=== PATIENT | female | born 1950 | race Caucasian/White ===

== ENCOUNTER 2020-01-07 09:29 | Outpatient (REF) | payer MEDICARE, SELFPAY ==
[2020-01-07 10:08] LABS: MANUAL DIFF FLAG NO
[2020-01-07 10:22] LABS: Basophils Absolute Auto 0.1 X10*3/uL (0.0-0.2); Basophils Percent Auto 0.8 % (0-2); Eosinophils Absolute Auto 0.1 X10*3/uL (0.0-0.4); Eosinophils Percent Auto 2.3 % (0-4); Hematocrit 41.9 % (37-47); Hemoglobin 13.6 g/dl (12.0-16.0); Imm Gran Abs Auto 0.01 X10*3/uL (0.00-0.03); Imm Gran Pct Auto 0.2 % (0.0-0.4); Lymphocytes Percent Auto 32.8 % (20-40); Mean Corpuscular HGB Conc 32.5 g/dl (31.0-35.0); Mean Corpuscular Hemoglobin 30.2 pg (27.0-33.0); Mean Corpuscular Volume 93.1 fL (80-98); Mean Platelet Volume 10.5 fL (9.4-12.3); Monocytes Absolute Auto 0.7 X10*3/uL (0.1-1.2); Monocytes Percent Auto 11.8 % (2-11); Neutrophils Absolute Auto 3.1 X10*3/uL (2.0-8.3); Neutrophils Percent Auto 52.1 % (45-73); Platelet Count 301 X10*3/uL (160-400)
[2020-01-07 10:41] LABS: Alanine Aminotransferase 15 U/L (0-31); Albumin Level 4.5 g/dL (3.5-5.0); Alkaline Phosphatase 91 U/L (39-117); Anion Gap 13 (12-20); Aspartate Amino Transferase 15 U/L (5-31); Bilirubin Total 0.7 mg/dL (0.0-1.0); Blood Urea Nitrogen 15 mg/dL (9-16); Calcium 9.3 mg/dL (8.4-10.2); Carbon Dioxide 27 mmol/L (22-29); Chloride 104 mmol/L (96-108); Cholesterol 204 mg/dL; Estimated Glomerular Filt Rate 57; Glucose Random 92 mg/dL (60-115); Potassium 4.3 mmol/l (3.3-5.1); Sodium 140 mmol/L (135-145); Total Protein 7.2 g/dL (6.5-8.0)
== END 2020-01-07 09:30 | disposition home or self-care (01) ==
LOC: HO.10HDL 09:29
PROVIDERS: Visit Provider Internal Medicine
DX: I12.9 Hypertensive chronic kidney disease with stage 1 through stage 4 chronic kidney disease, or unspecified chronic kidney disease (principal); N18.9 Chronic kidney disease, unspecified; K21.9 Gastro-esophageal reflux disease without esophagitis; E78.00 Pure hypercholesterolemia, unspecified
CPT/HCPCS: 36415; 80053; 82465; 85025

== ENCOUNTER 2020-04-07 09:21 | Outpatient (REF) | payer MEDICARE, SELFPAY ==
--- NOTE | 2020-04-07 | XR_ITS ---
EXAMINATION: XR WRIST, RIGHT CLINICAL INFORMATION: Wrist pain. COMPARISON: None. TECHNIQUE: 4 views of the right wrist. 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 Mild trapezium-scaphoid articulation degenerative changes. Ulnar-negative variance. No fracture or dislocation. No abnormal soft tissue calcification. 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
== END 2020-04-07 09:22 | disposition home or self-care (01) ==
LOC: HO.XRAY 09:21
PROVIDERS: PCP Internal Medicine; Visit Provider Internal Medicine
DX: M25.531 Pain in right wrist (principal); M79.641 Pain in right hand
CPT/HCPCS: 73110

== ENCOUNTER 2020-06-23 08:05 | Outpatient (REF) | payer MEDICARE, SELFPAY ==
--- NOTE | ~2020-06-23 | MM_ITS ---
EXAMINATION: BONE DENSITOMETRY CLINICAL INDICATION: Postmenopausal. COMPARISON: Previous BD dated 04/28/2016 and baseline BD dated 03/28/2010. TECHNIQUE: Using a [employer] DXA System (software version: 13.1) manufactured by [employer], dual-energy x-ray absorptiometry was performed of the lumbar spine and left hip. The images are of good technical quality. Summary results are attached. FINDINGS: AP SPINE L1-L4: Current: BMD 1.053 g/cm2, Z-score -0.1, T-score -1.1, osteopenia, 0.0% change from previous, 1.3% decrease from baseline (<5% change is not significant). Prior: BMD 1.053 g/cm2. Baseline: BMD 1.067 g/cm2. LEFT FEMUR, NECK: Current: BMD 0.716 g/cm2, Z-score -1.1, T-score -2.3, osteopenia. Prior: BMD 0.729 g/cm2. Baseline: BMD 0.827 g/cm2. LEFT FEMUR, TOTAL: Current: BMD 0.861 g/cm2, Z-score -0.2, T-score -1.2, osteopenia, 2.0% decrease from previous, 7.9% decrease from baseline (<5% change is not significant). Prior: BMD 0.879 g/cm2. Baseline: BMD 0.935 g/cm2. IDENTIFIED RISK FACTORS: Menopause, rheumatoid arthritis, alcohol (3 or more units per day). HISTORY OF FRACTURE: None listed. MEDICATIONS: None listed. MM/XR DEXA axial skeleton IMPRESSION: 1. DIAGNOSIS: Osteopenia based on the lowest T-score value of -2.3 in the femoral neck applying World Health Organization criteria. 2. 10-YEAR FRACTURE RISK PREDICTION, FRAX: Major osteoporotic fracture (clinical spine, forearm, hip or shoulder) 20.1%. Hip fracture 6.0%. 3. Treatment Recommendations: NOF guidelines recommend consideration for treatment in postmenopausal women and men age 50 and older presenting with the following: -A hip or vertebral (clinical or morphometric) fracture. -T-score less than or equal to -2.5 at the femoral neck or spine after appropriate evaluation to exclude secondary causes. -Low bone mass at the hip or spine and a 10-year fracture probability by FRAX of greater than or equal to 3% for hip fracture or greater than or equal to 20% for major osteoporotic fracture based on the [place] adapted WHO algorithm. 4. Other Recommendations: All treatment decisions require clinical judgment and consideration of individual patient factors, including patient preferences, comorbidities, previous drug use, risk factors not captured in the FRAX model (e.g. frailty, falls, vitamin D deficiency, increased bone turnover, interval significant decline in bone density) and possible under or overestimation of fracture risk by FRAX. Additional medical evaluation for secondary cause of low bone mineral density may be appropriate. FUTURE SCAN RECOMMENDATION: People with diagnosed cases of osteoporosis or at high risk for fracture should have regular bone mineral density tests. For patients eligible for Medicare, routine testing is allowed once every 2 years. The testing frequency can be increased to one year for patients who have rapidly progressing disease, those who are receiving or discontinuing medical therapy to restore bone mass, or have additional risk factors.
== END 2020-06-23 08:06 | disposition home or self-care (01) ==
LOC: HO.MAMMO 08:05
PROVIDERS: PCP Internal Medicine; Visit Provider Obstetrics & Gynecology
DX: Z13.820 Encounter for screening for osteoporosis (principal); M06.9 Rheumatoid arthritis, unspecified; Z78.0 Asymptomatic menopausal state
CPT/HCPCS: 77080

== ENCOUNTER 2020-07-14 09:43 | Outpatient (REF) | payer MEDICARE, SELFPAY ==
--- NOTE | ~2020-07-14 | XR_ITS ---
EXAMINATION: XR KNEE, LEFT CLINICAL INFORMATION: Left knee pain. COMPARISON: None TECHNIQUE: Four views of the left knee. FINDINGS: There is loss of medial and patellofemoral compartment joint space with moderate periarticular spurring. No visible acute fracture, dislocation or loose body seen. No abnormal joint effusion seen. XR/XR knee LT 4V IMPRESSION: Mild degenerative changes medial and patellofemoral compartment. No visible acute fracture or dislocation seen.
[2020-07-14 10:45] LABS: MANUAL DIFF FLAG NO
[2020-07-14 11:04] LABS: Basophils Absolute Auto 0.1 X10*3/uL (0.0-0.2); Basophils Percent Auto 0.8 % (0-2); Eosinophils Absolute Auto 0.2 X10*3/uL (0.0-0.4); Hematocrit 40.5 % (37-47); Imm Gran Abs Auto 0.01 X10*3/uL (0.00-0.03); Imm Gran Pct Auto 0.2 % (0.0-0.4); Lymphocytes Absolute Auto 1.7 X10*3/uL (1.2-4.9); Mean Corpuscular HGB Conc 32.1 g/dl (31.0-35.0); Mean Corpuscular Hemoglobin 30.4 pg (27.0-33.0); Mean Corpuscular Volume 94.8 fL (80-98); Mean Platelet Volume 10.7 fL (9.4-12.3); Monocytes Absolute Auto 0.7 X10*3/uL (0.1-1.2); Neutrophils Absolute Auto 3.4 X10*3/uL (2.0-8.3); Platelet Count 263 X10*3/uL (160-400); Red Blood Count 4.27 X10*6/uL (4.20-5.50); Red Cell Distribution Width 12.4 % (11.0-16.0)
[2020-07-14 11:25] LABS: Anion Gap 12 (12-20); Blood Urea Nitrogen 18 mg/dL (9-16); Calcium 9.8 mg/dL (8.4-10.2); Carbon Dioxide 27 mmol/L (22-29); Chloride 108 mmol/L (96-108); Estimated Glomerular Filt Rate 53; Glucose Random 104 mg/dL (60-115); Potassium 4.8 mmol/L (3.3-5.1); Sodium 142 mmol/L (135-145)
== END 2020-07-14 09:44 | disposition home or self-care (01) ==
LOC: HO.LAB 09:43
PROVIDERS: PCP Internal Medicine; Visit Provider Internal Medicine
DX: I12.9 Hypertensive chronic kidney disease with stage 1 through stage 4 chronic kidney disease, or unspecified chronic kidney disease (principal); N18.9 Chronic kidney disease, unspecified; K21.9 Gastro-esophageal reflux disease without esophagitis; M25.562 Pain in left knee
CPT/HCPCS: 36415; 73564; 80048; 85025

== ENCOUNTER 2020-12-06 07:35 | Outpatient (REF) | payer MEDICARE, SELFPAY ==
--- NOTE | ~2020-12-06 | MM_ITS ---
EXAMINATION: MM SCREENING DIGITAL BREAST TOMOSYNTHESIS, BILATERAL CLINICAL INFORMATION: Screening. Asymptomatic. The lifetime risk of breast cancer based on the Tyrer-Cuzick Model is 7%. COMPARISON: Mammography: 08/19/2019, 08/16/2018, 07/27/2017 TECHNIQUE: Digital breast tomosynthesis is performed in both the craniocaudal and mediolateral oblique views along with computer-aided detection (CAD). Synthesized 2D images are generated from the tomosynthesis. FINDINGS: There are scattered areas of fibroglandular density (ACR BI-RADS breast composition Category b). There are no significant masses, abnormal calcifications, or other abnormalities. Parenchymal pattern is similar to prior studies. No developing density. No significant changes. MM/MM tomosynthesis screening BI IMPRESSION: No mammographic evidence of malignancy. ASSESSMENT: BI-RADS 1: Negative RECOMMENDATION: Routine annual mammography screening. This patient's information was entered into a reminder system with a target due date for their next mammogram.
== END 2020-12-06 07:36 | disposition home or self-care (01) ==
LOC: HO.MAMMO 07:35
PROVIDERS: Visit Provider Internal Medicine
DX: Z12.31 Encounter for screening mammogram for malignant neoplasm of breast (principal)
CPT/HCPCS: 77063; 77067

== ENCOUNTER 2021-01-19 10:27 | Outpatient (REF) | payer MEDICARE, SELFPAY ==
[2021-01-19 10:45] LABS: MANUAL DIFF FLAG NO
[2021-01-19 11:44] LABS: Basophils Percent Auto 0.5 % (0-2); Eosinophils Absolute Auto 0.2 X10*3/uL (0.0-0.4); Eosinophils Percent Auto 2.6 % (0-4); Hematocrit 41.5 % (37.0-47.0); Hemoglobin 13.6 g/dl (12.0-16.0); Imm Gran Abs Auto 0.04 X10*3/uL (0.00-0.03); Imm Gran Pct Auto 0.5 % (0.0-0.4); Lymphocytes Absolute Auto 2.2 X10*3/uL (1.2-4.9); Lymphocytes Percent Auto 28.6 % (20-40); Mean Corpuscular HGB Conc 32.8 g/dl (31.0-35.0); Mean Corpuscular Hemoglobin 30.2 pg (27.0-33.0); Mean Platelet Volume 10.2 fL (9.4-12.3); Monocytes Absolute Auto 0.7 X10*3/uL (0.1-1.2); Monocytes Percent Auto 8.5 % (2-11); Neutrophils Absolute Auto 4.7 x10*3/uL (2.0-8.3); Neutrophils Percent Auto 59.3 % (45-73); Platelet Count 307 X10*3/uL (160-400); Red Blood Count 4.51 X10*6/uL (4.20-5.50); Red Cell Distribution Width 11.9 % (11.0-16.0); White Blood Count 7.8 X10*3/uL (4.8-10.8)
[2021-01-19 12:15] LABS: Alanine Aminotransferase 18 U/L (0-31); Albumin Level 4.4 g/dL (3.5-5.0); Alkaline Phosphatase 92 U/L (39-117); Anion Gap 11 (12-20); Aspartate Amino Transferase 16 U/L (5-31); Bilirubin Total 0.7 mg/dL (0.0-1.0); Blood Urea Nitrogen 16 mg/dL (9-16); Calcium 9.6 mg/dL (8.4-10.2); Carbon Dioxide 24 mmol/L (22-29); Chloride 108 mmol/L (96-108); Cholesterol 208 mg/dL; Estimated Glomerular Filt Rate 51; Glucose Fasting 117 mg/dL (60-99); HDL Cholesterol 61 mg/dL; LDL Cholesterol Calculated 119 mg/dl; Potassium 4.1 mmol/L (3.3-5.1); Sodium 139 mmol/L (135-145); Triglycerides 144 mg/dL
[2021-01-19 14:46] LABS: Influenza A PCR NEGATIVE (Negative); Influenza B PCR NEGATIVE (Negative); Resp Syncy Virus RNA Qual PCR NEGATIVE (Negative); SARS COV2 PCR INHOUSE NEGATIVE (Negative)
== END 2021-01-19 10:28 | disposition home or self-care (01) ==
LOC: HO.LAB 10:27
PROVIDERS: PCP Internal Medicine; Visit Provider Internal Medicine
DX: I10 Essential (primary) hypertension (principal); E78.00 Pure hypercholesterolemia, unspecified; K21.9 Gastro-esophageal reflux disease without esophagitis; M19.90 Unspecified osteoarthritis, unspecified site; Z20.822 Contact with and (suspected) exposure to COVID-19
CPT/HCPCS: 0241U; 36415; 80053; 80061; 85025

== ENCOUNTER 2021-05-19 10:54 | Outpatient (REF) | payer MEDICARE, SELFPAY ==
--- NOTE | ~2021-05-19 | US_ITS ---
EXAMINATION: US VENOUS ULTRASOUND WITH DOPPLER LOWER EXTREMITY, LEFT CLINICAL INFORMATION: Left leg pain COMPARISON: None TECHNIQUE: Ultrasound of the deep veins is performed from the hip to the calf with compression sonography and color and pulse Doppler assessment. Spectral analysis with color-flow imaging is performed. FINDINGS: There is normal venous compression and respiratory variation and augmented flow. The visualized common femoral vein, superficial femoral vein, profunda femoral vein, popliteal vein, and the trifurcation region shows no evidence of deep venous thrombosis. There is no significant popliteal fossa cyst. If the patient's symptoms persist, followup ultrasound in 5 days 7 days might be of value to exclude proximal propagation from a non-visualized calf vein. US/US venous duplex LE LT IMPRESSION: No DVT demonstrated in the left lower extremity.
--- NOTE | ~2021-05-19 | XR_ITS ---
EXAMINATION: XR KNEE, LEFT CLINICAL INFORMATION: Pain COMPARISON: Previous x-ray March 2016 TECHNIQUE: Four views of the left knee. FINDINGS: Bone alignment is normal. No fracture or dislocation is seen. There is arthritis at the medial femoral tibial and patellofemoral joints with joint space narrowing and osteophyte formation. There is a small joint effusion. XR/XR knee LT 4V IMPRESSION: Arthritis increased from 2017 exam.
== END 2021-05-19 10:55 | disposition home or self-care (01) ==
LOC: HO.US 10:54
PROVIDERS: PCP Internal Medicine; Visit Provider Internal Medicine
DX: M25.562 Pain in left knee (principal); M79.605 Pain in left leg
CPT/HCPCS: 73564; 93971

== ENCOUNTER → 2021-06-24 08:36 | Outpatient (BNVA) | payer MEDICARE, SELFPAY | PROVIDERS: PCP Internal Medicine; Visit Provider Physician Assistant | DX: M17.12 Unilateral primary osteoarthritis, left knee (principal) | CPT/HCPCS: 20610; 99202; J1040 ==

== ENCOUNTER 2021-09-14 11:52 | Outpatient (REF) | payer MEDICARE, SELFPAY ==
[2021-09-14 14:29] LABS: Alanine Aminotransferase 21 U/L (0-31); Albumin Level 4.6 g/dL (3.5-5.0); Alkaline Phosphatase 92 U/L (39-117); Anion Gap 12 (12-20); Aspartate Amino Transferase 21 U/L (5-31); Bilirubin Total 0.5 mg/dL (0.0-1.0); Blood Urea Nitrogen 21 mg/dL (9-16); Calcium 9.7 mg/dL (8.4-10.2); Carbon Dioxide 26 mmol/L (22-29); Chloride 108 mmol/L (96-108); Estimated Glomerular Filt Rate 53; Glucose Random 82 mg/dL (60-115); Potassium 4.3 mmol/L (3.3-5.1); Sodium 142 mmol/L (135-145); Total Protein 7.1 g/dL (6.5-8.0)
== END 2021-09-14 11:53 | disposition home or self-care (01) ==
LOC: HO.10HDL 11:52
PROVIDERS: Visit Provider Internal Medicine
DX: I12.9 Hypertensive chronic kidney disease with stage 1 through stage 4 chronic kidney disease, or unspecified chronic kidney disease (principal); N18.9 Chronic kidney disease, unspecified; K21.9 Gastro-esophageal reflux disease without esophagitis
CPT/HCPCS: 36415; 80053

== ENCOUNTER 2021-12-07 08:37 | Outpatient (REF) | payer MEDICARE, SELFPAY ==
--- NOTE | ~2021-12-07 | MM_ITS ---
EXAMINATION: MM SCREENING DIGITAL BREAST TOMOSYNTHESIS, BILATERAL CLINICAL INFORMATION: Screening. Asymptomatic. The lifetime risk of breast cancer based on the Tyrer-Cuzick Model is 5%. COMPARISON: Mammography: 12/06/2020, 08/19/2019, 08/16/2018 TECHNIQUE: Digital breast tomosynthesis is performed in both the craniocaudal and mediolateral oblique views along with computer-aided detection (CAD). Synthesized 2D images are generated from the tomosynthesis. FINDINGS: There are scattered areas of fibroglandular density (ACR BI-RADS breast composition Category b). Parenchymal pattern is similar to prior exams n developing density or interval significant mass or architectural abnormality. No abnormal calcifications. Scattered minor asymmetries are stable. The axilla are unremarkable. No significant changes. MM/MM tomosynthesis screening BI IMPRESSION: No mammographic evidence of malignancy. ASSESSMENT: BI-RADS 1: Negative RECOMMENDATION: Routine annual mammography screening. This patient's information was entered into a reminder system with a target due date for their next mammogram.
== END 2021-12-07 08:38 | disposition home or self-care (01) ==
LOC: HO.MAMMO 08:37
PROVIDERS: PCP Internal Medicine; Visit Provider Internal Medicine
DX: Z12.31 Encounter for screening mammogram for malignant neoplasm of breast (principal)
CPT/HCPCS: 77063; 77067

== ENCOUNTER 2021-12-28 07:17 | Outpatient (REF) | payer MEDICARE, SELFPAY ==
[2021-12-28 07:28] LABS: MANUAL DIFF FLAG NO
[2021-12-28 07:34] LABS: Basophils Absolute Auto 0.1 X10*3/uL (0.0-0.2); Basophils Percent Auto 1.3 % (0-2); Eosinophils Absolute Auto 0.2 X10*3/uL (0.0-0.4); Eosinophils Percent Auto 3.7 % (0-4); Hematocrit 39.6 % (37.0-47.0); Hemoglobin 13.3 g/dl (12.0-16.0); Imm Gran Abs Auto 0.02 X10*3/uL (0.00-0.03); Imm Gran Pct Auto 0.3 % (0.0-0.4); Lymphocytes Percent Auto 32.1 % (20-40); Mean Corpuscular HGB Conc 33.6 g/dl (31.0-35.0); Mean Corpuscular Hemoglobin 30.7 pg (27.0-33.0); Mean Corpuscular Volume 91.5 fL (80.0-98.0); Mean Platelet Volume 9.7 fL (9.4-12.3); Monocytes Absolute Auto 0.6 X10*3/uL (0.1-1.2); Neutrophils Absolute Auto 3.3 x10*3/uL (2.0-8.3); Neutrophils Percent Auto 52.6 % (45-73); Platelet Count 280 X10*3/uL (160-400); Red Blood Count 4.33 X10*6/uL (4.20-5.50); Red Cell Distribution Width 12.1 % (11.0-16.0); White Blood Count 6.3 X10*3/uL (4.8-10.8)
[2021-12-28 08:26] LABS: Alanine Aminotransferase 13 U/L (0-31); Albumin Level 4.4 g/dL (3.5-5.0); Alkaline Phosphatase 79 U/L (39-117); Anion Gap 13 (12-20); Aspartate Amino Transferase 14 U/L (5-31); Bilirubin Total 0.5 mg/dL (0.0-1.0); Blood Urea Nitrogen 20 mg/dL (9-16); Calcium 9.6 mg/dL (8.4-10.2); Carbon Dioxide 27 mmol/L (22-29); Chloride 108 mmol/L (96-108); Cholesterol 214 mg/dL; Estimated Glomerular Filt Rate 51; Glucose Fasting 96 mg/dL (60-99); HDL Cholesterol 81 mg/dL; LDL Cholesterol Calculated 117 mg/dl; Potassium 4.8 mmol/L (3.3-5.1); Sodium 143 mmol/L (135-145); Total Protein 6.9 g/dL (6.5-8.0); Triglycerides 80 mg/dL
== END 2021-12-28 07:18 | disposition home or self-care (01) ==
LOC: HO.LAB 07:17
PROVIDERS: PCP Internal Medicine; Visit Provider Internal Medicine
DX: K21.9 Gastro-esophageal reflux disease without esophagitis (principal); E78.00 Pure hypercholesterolemia, unspecified; I12.9 Hypertensive chronic kidney disease with stage 1 through stage 4 chronic kidney disease, or unspecified chronic kidney disease; N18.9 Chronic kidney disease, unspecified
CPT/HCPCS: 36415; 80053; 80061; 85025

== ENCOUNTER 2022-04-19 11:24 | Outpatient (REF) | payer MEDICARE, SELFPAY ==
[2022-04-19 13:53] LABS: Anion Gap 14 (12-20); Blood Urea Nitrogen 17 mg/dL (9-16); Calcium 10.2 mg/dL (8.4-10.2); Carbon Dioxide 26 mmol/L (22-29); Chloride 108 mmol/L (96-108); Estimated Glomerular Filt Rate 56; Glucose Random 84 mg/dL (60-115); Potassium 4.5 mmol/L (3.3-5.1); Sodium 143 mmol/L (135-145)
== END 2022-04-19 11:25 | disposition home or self-care (01) ==
LOC: HO.10HDL 11:24
PROVIDERS: Visit Provider Internal Medicine
DX: I12.9 Hypertensive chronic kidney disease with stage 1 through stage 4 chronic kidney disease, or unspecified chronic kidney disease (principal); N18.9 Chronic kidney disease, unspecified
CPT/HCPCS: 36415; 80048

== ENCOUNTER 2022-07-18 10:08 | Outpatient (REF) | payer MEDICARE, SELFPAY ==
[2022-07-18 10:25] LABS: MANUAL DIFF FLAG NO
[2022-07-18 11:29] LABS: Basophils Absolute Auto 0.1 X10*3/uL (0.0-0.2); Basophils Percent Auto 0.8 % (0-2); Eosinophils Absolute Auto 0.2 X10*3/uL (0.0-0.4); Eosinophils Percent Auto 2.4 % (0-4); Hematocrit 37.1 % (37.0-47.0); Hemoglobin 11.7 g/dl (12.0-16.0); Imm Gran Abs Auto 0.03 X10*3/uL (0.00-0.03); Imm Gran Pct Auto 0.4 % (0.0-0.4); Lymphocytes Absolute Auto 1.9 X10*3/uL (1.2-4.9); Lymphocytes Percent Auto 25.2 % (20-40); Mean Corpuscular HGB Conc 31.5 g/dl (31.0-35.0); Mean Corpuscular Hemoglobin 29.6 pg (27.0-33.0); Mean Corpuscular Volume 93.9 fL (80.0-98.0); Mean Platelet Volume 10.8 fL (9.4-12.3); Monocytes Absolute Auto 0.9 X10*3/uL (0.1-1.2); Monocytes Percent Auto 11.9 % (2-11); Neutrophils Absolute Auto 4.4 x10*3/uL (2.0-8.3); Neutrophils Percent Auto 59.3 % (45-73); Platelet Count 332 X10*3/uL (160-400); Red Blood Count 3.95 X10*6/uL (4.20-5.50); Red Cell Distribution Width 12.4 % (11.0-16.0); White Blood Count 7.5 X10*3/uL (4.8-10.8)
[2022-07-18 12:16] LABS: Anion Gap 12 (12-20); Blood Urea Nitrogen 22 mg/dL (9-16); Calcium 9.8 mg/dL (8.4-10.2); Carbon Dioxide 25 mmol/L (22-29); Chloride 109 mmol/L (96-108); Estimated Glomerular Filt Rate 52; Glucose Random 90 mg/dL (60-115); Potassium 4.5 mmol/L (3.3-5.1); Sodium 141 mmol/L (135-145)
== END 2022-07-18 10:09 | disposition home or self-care (01) ==
LOC: HO.LAB 10:08
PROVIDERS: PCP Internal Medicine; Visit Provider Internal Medicine
DX: I10 Essential (primary) hypertension (principal); K21.9 Gastro-esophageal reflux disease without esophagitis; E78.00 Pure hypercholesterolemia, unspecified
CPT/HCPCS: 36415; 80048; 85025

== ENCOUNTER 2022-10-31 09:28 | Outpatient (REF) | payer MEDICARE, SELFPAY ==
[2022-10-31 09:46] LABS: MANUAL DIFF FLAG NO
[2022-10-31 10:16] LABS: Basophils Absolute Auto 0.1 X10*3/uL (0.0-0.2); Basophils Percent Auto 0.7 % (0-2); Eosinophils Absolute Auto 0.2 X10*3/uL (0.0-0.4); Eosinophils Percent Auto 2.8 % (0-4); Hematocrit 41.1 % (37.0-47.0); Hemoglobin 13.3 g/dl (12.0-16.0); Imm Gran Abs Auto 0.03 X10*3/uL (0.00-0.03); Imm Gran Pct Auto 0.4 % (0.0-0.4); Lymphocytes Absolute Auto 1.9 X10*3/uL (1.2-4.9); Lymphocytes Percent Auto 27.1 % (20-40); Mean Corpuscular HGB Conc 32.4 g/dl (31.0-35.0); Mean Corpuscular Volume 92.6 fL (80.0-98.0); Mean Platelet Volume 10.3 fL (9.4-12.3); Monocytes Absolute Auto 0.8 X10*3/uL (0.1-1.2); Monocytes Percent Auto 11.1 % (2-11); Neutrophils Percent Auto 57.9 % (45-73); Platelet Count 293 X10*3/uL (160-400); Red Blood Count 4.44 X10*6/uL (4.20-5.50); Red Cell Distribution Width 12.8 % (11.0-16.0); White Blood Count 6.9 X10*3/uL (4.8-10.8)
[2022-10-31 11:04] LABS: Alanine Aminotransferase 10 U/L (0-31); Albumin Level 4.4 g/dL (3.5-5.0); Alkaline Phosphatase 95 U/L (39-117); Anion Gap 12 (12-20); Aspartate Amino Transferase 15 U/L (5-31); Bilirubin Total 0.5 mg/dL (0.0-1.0); Blood Urea Nitrogen 15 mg/dL (9-16); Carbon Dioxide 26 mmol/L (22-29); Chloride 107 mmol/L (96-108); Estimated Glomerular Filt Rate 48; Glucose Random 100 mg/dL (60-115); Potassium 4.2 mmol/L (3.3-5.1); Sodium 141 mmol/L (135-145); Total Protein 7.4 g/dL (6.5-8.0)
[2022-10-31 11:12] LABS: Thyroid Stimulating Hormone 1.53 uIU/mL (0.32-4.0)
[2022-10-31 11:21] LABS: Vitamin B12 746 pg/mL (200-900)
== END 2022-10-31 09:29 | disposition home or self-care (01) ==
LOC: HO.LAB 09:28
PROVIDERS: PCP Internal Medicine; Visit Provider Internal Medicine
DX: I10 Essential (primary) hypertension (principal); R53.83 Other fatigue; D64.9 Anemia, unspecified
CPT/HCPCS: 36415; 80053; 82607; 84443; 85025

== ENCOUNTER → 2022-11-14 08:20 | Outpatient (REF) | payer MEDICARE, SELFPAY ==
--- NOTE | 2022-11-14 08:30 | CA_ITS ---
Acquisition Time: 2022-11-14 08:38:32 Total Exercise Time: 00:08:00 Test Indications: TOLLIVER,HTN Medications: Protocol: NII Max HR: 136 BPM 91% of Pred: 148 BPM Max BP: 166/076 mmHG Max Work Load: 7.0 METS pt exercised on std nii protocol for 8 min into stage 2, max hr 125-84%max. treadmill was held at stage 2 due to sob. no cp. brief burst of svt-5beats at 750. 1mm st dep in inf/lat leads. equivocal test due to not reaching 85%. pt will require further eval due to st changes. Referred By: Junior Mcguire Overread By: MARY MCGUIRE MD
== END ==
LOC: HO.CARD 08:20
PROVIDERS: PCP Internal Medicine; Visit Provider Internal Medicine
DX: R06.09 Other forms of dyspnea (principal); R03.0 Elevated blood-pressure reading, without diagnosis of hypertension
CPT/HCPCS: 93017

== ENCOUNTER 2022-12-13 08:33 | Outpatient (REF) | payer MEDICARE, SELFPAY | END 2022-12-13 08:34 | disposition home or self-care (01) | LOC: HO.MAMMO 08:33 | PROVIDERS: PCP Internal Medicine; Visit Provider Internal Medicine | DX: Z12.31 Encounter for screening mammogram for malignant neoplasm of breast (principal) | CPT/HCPCS: 77063; 77067 ==

== ENCOUNTER → 2022-12-13 08:45 | Outpatient (BNV) | payer MEDICARE, SELFPAY | PROVIDERS: PCP Internal Medicine; Visit Provider Radiology Diagnostic Radiology | DX: Z12.31 Encounter for screening mammogram for malignant neoplasm of breast (principal) | CPT/HCPCS: 77063; 77067 ==

== ENCOUNTER 2023-01-18 10:27 | Outpatient (REF) | payer MEDICARE, SELFPAY ==
[2023-01-18 13:28] LABS: MANUAL DIFF FLAG NO
[2023-01-18 13:32] LABS: Basophils Absolute Auto 0.1 X10*3/uL (0.0-0.2); Eosinophils Absolute Auto 0.1 X10*3/uL (0.0-0.4); Eosinophils Percent Auto 1.4 % (0-4); Hemoglobin 13.8 g/dl (12.0-16.0); Imm Gran Abs Auto 0.01 X10*3/uL (0.00-0.03); Imm Gran Pct Auto 0.1 % (0.0-0.4); Lymphocytes Absolute Auto 1.6 X10*3/uL (1.2-4.9); Lymphocytes Percent Auto 23.3 % (20-40); Mean Corpuscular HGB Conc 32.9 g/dl (31.0-35.0); Mean Corpuscular Hemoglobin 30.5 pg (27.0-33.0); Mean Corpuscular Volume 92.7 fL (80.0-98.0); Mean Platelet Volume 10.3 fL (9.4-12.3); Monocytes Absolute Auto 0.7 X10*3/uL (0.1-1.2); Monocytes Percent Auto 9.7 % (2-11); Neutrophils Absolute Auto 4.5 x10*3/uL (2.0-8.3); Neutrophils Percent Auto 64.5 % (45-73); Platelet Count 303 X10*3/uL (160-400); Red Blood Count 4.53 X10*6/uL (4.20-5.50); Red Cell Distribution Width 12.2 % (11.0-16.0); White Blood Count 6.9 X10*3/uL (4.8-10.8)
[2023-01-18 13:45] LABS: Alanine Aminotransferase 15 U/L (0-31); Albumin Level 4.4 g/dL (3.5-5.0); Alkaline Phosphatase 97 U/L (39-117); Anion Gap 11 (12-20); Aspartate Amino Transferase 15 U/L (5-31); Bilirubin Total 0.6 mg/dL (0.0-1.0); Blood Urea Nitrogen 15 mg/dL (9-16); Calcium 9.8 mg/dL (8.4-10.2); Carbon Dioxide 25 mmol/L (22-29); Chloride 108 mmol/L (96-108); Cholesterol 218 mg/dL (<200); Estimated Glomerular Filt Rate 52; Glucose Fasting 101 mg/dL (60-99); HDL Cholesterol 73 mg/dL (>40); LDL Cholesterol Calculated 124 mg/dL (<100); Sodium 140 mmol/L (135-145); Total Protein 7.4 g/dL (6.5-8.0); Triglycerides 108 mg/dL (<150)
== END 2023-01-18 10:28 | disposition home or self-care (01) ==
LOC: HO.10HDL 10:27
PROVIDERS: Visit Provider Internal Medicine
DX: I12.9 Hypertensive chronic kidney disease with stage 1 through stage 4 chronic kidney disease, or unspecified chronic kidney disease (principal); N18.9 Chronic kidney disease, unspecified; E78.00 Pure hypercholesterolemia, unspecified; M19.90 Unspecified osteoarthritis, unspecified site
CPT/HCPCS: 36415; 80053; 80061; 85025

== ENCOUNTER → 2023-02-12 08:16 | Outpatient (BNVA) | payer MEDICARE, SELFPAY | PROVIDERS: PCP Internal Medicine; Visit Provider Internal Medicine | DX: R94.39 Abnormal result of other cardiovascular function study (principal); R06.02 Shortness of breath | CPT/HCPCS: 93005; 99202 ==

== ENCOUNTER 2023-02-12 08:17 | Outpatient (AMB) | payer MEDICARE, SELFPAY ==
[2023-02-12 08:26] VITALS: BP 144/80; PULSE 72; BMI 34.7
--- NOTE | 2023-02-12 08:26 | A.OFFVIS_ITS ---
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 She does not have any cardiac issues including coronary disease or myocardial infarction or cardiomyopathy or in fact any other cardiac concerns. She is on medications for hypertension and dyslipidemia. Somewhat on the overweight side. She states that she has been getting short of breath with activity. She generally notices that with activity. No clear anginal-type chest pains. She underwent a stress test which showed some ST depression. She has been referred here for further evaluation. [facility] Medical History (Updated 02/12/23 @ 08:43 by Stephan Cárdenas MD) Acid reflux High cholesterol High blood pressure Surgical History (Updated 02/12/23 @ 08:30 by Margo Gray) Hx of left knee surgery Family History (Updated 02/12/23 @ 08:30 by Margo Gray) Mother No problems noted. Father No problems noted. 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 Review of Systems Const Denies chills, Denies daytime sleepiness, Denies fatigue, Denies fever(s), Denies frequent falls, Denies night sweats, Denies snoring, Denies weakness, Denies weight gain and Denies weight loss Eyes Denies loss of vision ENT Denies dizziness and Denies hearing loss Card Denies chest pain, Denies chest pain with activity, Denies syncope, Denies rapid heart rate, Denies edema, Denies claudication, Denies leg edema, Denies lightheadedness, Denies palpitations, Denies dyspnea on exertion and Denies orthopnea Resp Denies cough, Denies excessive phlegm production, Denies dyspnea on exertion, Denies snoring and Denies wheezing GI Denies abdominal pain, Denies hematochezia, Denies change in bowel habits, Denies change in stool character, Denies heartburn, Denies nausea and Denies vomiting Denies hematuria, Denies urinary frequency and Denies dysuria Musc Denies arthralgias, Denies muscle weakness, Denies numbness and Denies tingling Skin/Breast Denies nail changes and Denies rash Neuro Denies Abnormal speech present, Denies dizziness, Denies syncope, Denies frequent falls, Denies loss of vision, Denies memory loss, Denies numbness, Denies tingling and Denies weakness Psych Denies depression and Denies memory loss Endo Denies fatigue and Denies palpitations Aller/Immun Denies wheezing Physical Exam Vital Signs: Last Vital Signs Pulse 72 02/12/23 08:26 BP 144/80 H 02/12/23 08:26 BMI result Body Mass Index 34.7 Const General: comfortable and no acute distress Orientation/consciousness: patient oriented x3 HEENT Other: Unremarkable Head: Yes normal to inspection Neck Neck: Yes normal visual inspection Chest Chest palpation & inspection: normal inspection of the chest Resp Auscultation: clear to auscultation bilaterally Cardio Palpation: normal PMI Heart sounds: S1 normal heart sound present, S2 normal heart sound present, no gallops, no murmurs and no rubs GI Palpation (GI): Soft to palpation Back/Spine/Pelvis Other: unremarkable Skin General skin exam: no rashes or lesions noted Neuro General: patient oriented x3 Speech: No Abnormal speech present Extrem General: Yes normal to inspection Psych Mental Status: mental status grossly normal Office Procedures EKG Details: EKG with sinus rhythm at 72/Min; nonspecific ST-T changes; [place] [id number], Complete Assessment & Plan Assessment & Plan (1) SOB (shortness of breath): Code(s): R06.02 - Shortness of breath (2) Abnormal stress test: Code(s): R94.39 - Abnormal result of other cardiovascular function study Plan In stage II of the Mike protocol ETT, there was slight ST depression, but she did not have any chest pains. Considering her age and risk factors, we can do stress test with perfusion imaging. Explained about this and she agrees. We will also get echocardiogram for cardiac function. Blood pressure is somewhat borderline. If it remains this way, may need changes. Follow-up after testing. Orders: Orders CA echo transthoracic complete Today I25.10 - Atherosclerotic heart disease of [place] coronary artery without angina pectoris, R06.02 - Shortness of breath CA stress test Today R06.02 - Shortness of breath, R07.2 - Precordial pain NM cardiolite stress test Today R06.02 - Shortness of breath, R07.2 - Precordial pain Coding Level of Care Code New Pt Level 4 (66396) Diagnoses SOB (shortness of breath) R06.02 Abnormal stress test R94.39 CPT Codes EKG - CPT: [id number], Complete ([id number])
== END 2023-02-12 08:52 | disposition home or self-care (01) ==
PROVIDERS: PCP Internal Medicine; Visit Provider Internal Medicine
DX: R06.02 Shortness of breath (principal); R94.39 Abnormal result of other cardiovascular function study
CPT/HCPCS: 93010; 99204

== ENCOUNTER → 2023-04-05 07:51 | Outpatient (REF) | payer MEDICARE, SELFPAY ==
--- NOTE | ~2023-04-05 | NM_ITS ---
Myocardial perfusion study Indication: Precordial chest pain Technique: The patient was brought in for a Lexiscan perfusion study on 04/05/2023. Patient performed low-level exercise and was injected 0.4 mg of Lexiscan intravenously. Within a minute of injection, 30 mCi of sestamibi was given intravenously. Images were obtained using the SPECT gamma camera interlaced with the gating device. Images were obtained in supine position. Resting perfusion study was performed on 04/06/2023. Patient was administered 30 mCi of sestamibi intravenously at rest. Images were then obtained in supine position. Images obtained with and without CT attenuation. Total DLP 175 mGy-cm. Images were processed with the software and compared side to side in short axis, horizontal long axis and vertical long axis views. Findings: The stress perfusion study showed both attenuated as well as non attenuated images show normal uptake of the LV myocardium. Is suggestion of left ventricle hypertrophy. The gated study shows normal LV systolic function with calculated LVEF of 67%. LV cavity is normal in size. The gated study shows normal systolic wall thickening and contraction of segments. Resting study shows non attenuated images show normal uptake of radiotracer in all segments of LV myocardium. Gating at rest reveals normal systolic wall motion with ejection fraction at 56%. The findings are consistent with normal myocardial perfusion. NM/NM cardiolite stress test Impression: 1. Myocardial perfusion imaging study shows normal myocardial perfusion 2. Gated LVEF is 67% 3. Transient ischemic dilatation not present EKG is nondiagnostic for ischemia
--- NOTE | 2023-04-05 07:54 | CA_ITS ---
Acquisition Time: 2023-04-05 09:14:30 Total Exercise Time: 00:02:00 Test Indications: Shortness of breath Medications: See H Protocol: LEXISCAN Max HR: 116 BPM 78% of Pred: 148 BPM Max BP: 150/106 mmHG Max Work Load: 1.0 METS Pharmaoclogical stress test with Lexiscan injection while sitting, without anginal symptoms, without arrhymias, with normotensive response to injection valeria nondiagnoisitic EKGs. Aminophine 75mg IVP given to reverse Lexiscan. Nuclear images pending. Test reviewed with Dr. Valencia Referred By: Stephan Cárdenas Overread By: Eneida Joseph
--- NOTE | 2023-04-05 07:54 | CA_ITS ---
Transthoracic Echocardiogram Patient (Last, First, Middle): Racheal Cunningham, Gender: Female Date of : 1950 Age: 72 Procedure Date: 04/05/2023 Procedure Type: Transthoracic Echocardiogram Location: OP Height: 162.56 cm Weight: 90.72 kg BSA: 1.96 m2 Heart Rate: bpm BP: 140 / 80 mmHg Steel Sampler: TO Referring MD: Stephan Cárdenas MD Transport Nurse: Ilia Valencia MD Symptoms: I25.10 - Atherosclerotic heart disease of [place] coronary artery without... Study Quality: Fair/contrast ECG Rhythm: Sinus Conclusions: - 1. Normal LV ejection fraction of 60-65% with mild LVH with pseudonormal filling pattern 2. Normal cardiac valvular Doppler 3. Normal RV systolic pressure 4. Upper limits of normal ascending aortic size 5. No gross pericardial effusion Findings Procedure Information Contrast agent, definity, is being given per protocol without apparent complications. Left Ventricle Normal left ventricular size and systolic function. There is mildly increased left ventricular wall thickness. The visually estimated ejection fraction is between 60-65%. Spectral Doppler is indicative of a pseudonormal filling pattern. Right Ventricle Normal right ventricular cavity size and systolic function. Atria The left atrium is likely dilated. Interatrial shunt cannot be excluded. The right atrium was not well visualized. Aortic Valve The aortic valve structure and function is likely normal. There is no aortic valve stenosis. There is no aortic valve regurgitation. Mitral Valve Likely normal mitral valve structure and function. There is no mitral valve regurgitation. There is no mitral valve stenosis. Pulmonic Valve The pulmonic valve was not well visualized. Tricuspid Valve Likely normal tricuspid valve structure and function. There is trace tricuspid valve regurgitation. The right ventricular systolic pressure is normal. The right ventricular systolic pressure is 28 mmHg. Normal right atrial pressure. There is no evidence of pulmonary hypertension. Great Vessels The pulmonary artery was not well visualized. Venous The inferior vena cava is normal in size and collapses greater than 50% with inspiration. Pericardium/Pleural There is no evidence of pericardial effusion. Prior Study Comparison No prior study available for comparison. delay in reporting due to technical issues Measurements 2D Linear Measurements IVSd: 1.24 0.6-0.9/0.6-1.0 cm LVIDd: 3.85 3.9-5.3/4.2-5.9 cm LVIDd Index: 1.96 2.4-3.2/2.2-3.1 cm/m2 LVIDs: 2.80 2.0-3.6 cm LVPWd: 1.22 0.7-1.1 cm LA Diam: 3.60 2.7-3.8/3.0-4.0 cm LAIDs Index: 1.84 1.5-2.3 cm/m2 LV Mass: 201.94 67-162/88-224 g LV Mass Index: 103.03 43-95/49-115 g/m2 LVOT Diam: 2.10 3.0+(-)1.3 cm 2D Systolic Function EF 4C: 61.10 >55% Mitral Valve MV Pk E: 0.92 MV PK A: 0.51 MV Decel Time: 121.00 E/A: 1.80 E'Lateral: 10.70 E'Medial: 10.00 E/E' Med: 9.20 E/E' Lat: 8.60 PHT: 35.00 MVA PHT: 6.29 [place]: 7.62 Aortic Valve AoV Pk Ron: 1.50 AoV Mn Ron: 1.06 AoV VTI: 0.27 AoV Pk Grad: 9.00 Aov Mn Grad: 5.00 DAMON Cont.VTI: 2.45 LVOT LVOT Pk Ron: 1.00 LVOT Mn Ron: 0.69 LVOT VTI: 0.19 LVOT Pk Grad: 4.00 LVOT Mn Grad: 2.00 LVOT Diam: 2.10 LVOT Area: 3.46 Diastolic Function MV Pk E: 0.92 MV Pk A: 0.51 E/A: 1.80 E'Medial: 10.00 E/E' Med: 9.20 E' Laterial: 10.70 E/E' Lat: 8.60 Right Ventricle TAPSE (mm): 22.30 TVS' Ron: 10.20 Tricuspid Valve TR Pk Ron: 2.26 TR Pk Grad: 20.00 RA Press: 8.00 RVSP: 28.00 Great Vessels Aorta Sinus of Valsalva: 3.10 2.0-3.5 cm Ao Asc: 3.60 2.1-3.4 cm Updated in Other Vendor System with Status of Final Ilia Valencia MD electronically signed on 04/06/2023 2:41:34 PM with status of Final
== END ==
LOC: HO.CARD 07:51
PROVIDERS: PCP Internal Medicine; Visit Provider Internal Medicine
DX: R07.2 Precordial pain (principal); I25.10 Atherosclerotic heart disease of native coronary artery without angina pectoris; R06.02 Shortness of breath
CPT/HCPCS: 78452; 93017; 93306; A9500; J0280; J2785; Q9957

== ENCOUNTER → 2023-04-05 07:54 | Outpatient (BNV) | payer MEDICARE, SELFPAY | PROVIDERS: PCP Internal Medicine; Visit Provider Nurse Practitioner | DX: R07.2 Precordial pain (principal); R06.02 Shortness of breath | CPT/HCPCS: 78452; 93016; 93018; 93306 ==

== ENCOUNTER → 2023-04-11 08:17 | Outpatient (REF) | payer MEDICARE, SELFPAY ==
--- NOTE | 2023-04-11 08:22 | HM_ITS ---
Conclusion: 1. Patient was monitored for total period of 3 days and 1 hour 2. Baseline was atrial fibrillation with average heart of 84 beats per minute with adequate rate control 3. No significant pauses noted 4. No patient reported symptoms MTDD
== END ==
LOC: HO.CARD 08:17
PROVIDERS: PCP Internal Medicine; Visit Provider Nurse Practitioner
DX: I48.91 Unspecified atrial fibrillation (principal)
CPT/HCPCS: 93242

== ENCOUNTER → 2023-04-11 08:22 | Outpatient (BNV) | payer MEDICARE, SELFPAY | PROVIDERS: PCP Internal Medicine; Visit Provider Internal Medicine Cardiovascular Disease | DX: I48.91 Unspecified atrial fibrillation (principal) | CPT/HCPCS: 93244 ==

== ENCOUNTER 2023-04-24 12:49 | Outpatient (AMB) | payer MEDICARE, SELFPAY ==
[2023-04-24 12:54] VITALS: BP 120/80; PULSE 86; BMI 34.6
--- NOTE | 2023-04-24 12:54 | MHC.OFFVIS ---
Intake Vital Signs 04/24/23 12:54 Height 5 ft 4 in Weight 201 lb 8.04 oz BMI 34.6 BP 120/80 Blood Pressure Location Lt brachial Position Sitting Pulse 86 Pulse Source Pulse Oximeter Intake Visit Reasons: 2 mth f/up mibi/ echo/ HS Intake Note: pt its here for a 2 mnth f/up for mibi /echo pt states that she is feeling fine. 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 When she arrived for her stress test she was found to be in atrial fibrillaion which was not known prior to the test. Nuclear stress test showed normal myocardial perfusion. Holter showed 100% burden of atrial fibrillation with adequate rate control. Echocardiogram showed EF of 60-65% with mild LVH. She reports she has been doing well, feels no different than any other time. Shortness of breath is about the same it has been. Denies chest pain, bleeding issues, palpitations, edema, or orthopnea. She started eliquis 04/06/23 but did not note that it was twice a day and only took it once a day. [facility] Medical History New onset atrial fibrillation Acid reflux High cholesterol High blood pressure Surgical History Hx of left knee surgery Family History Mother No problems noted. Father No problems noted. 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 Review of Systems Const Denies chills, Denies fatigue, Denies fever(s), Denies frequent falls, Denies weakness, Denies weight gain and Denies weight loss ENT Denies dizziness Card Denies chest pain, Denies leg edema, Denies lightheadedness, Denies palpitations, Denies dyspnea and Denies dyspnea on exertion Resp Denies cough, Denies dyspnea and Denies dyspnea on exertion GI Denies hematochezia Musc Denies abnormal gait, Denies muscle weakness, Denies numbness, Denies radiating pain into limb and Denies tingling Neuro Denies abnormal gait, Denies dizziness, Denies frequent falls, Denies numbness, Denies tingling and Denies weakness Endo Denies fatigue and Denies palpitations Physical Exam Vital Signs: Last Vital Signs Pulse 86 04/24/23 12:54 BP 120/80 04/24/23 12:54 BMI result Body Mass Index 34.6 Const General: healthy appearing and no acute distress Orientation/consciousness: patient oriented x3 HEENT Head: Yes normal to inspection Eyes General: appearance normal, both eyes and all related structures Neck Neck: Yes normal visual inspection Chest Chest palpation & inspection: normal inspection of the chest Resp Effort & Inspection: normal respiratory effort Auscultation: clear to auscultation bilaterally Cardio Jugular venous distension: no JVD Palpation: normal PMI Rate: regular rate Rhythm: abnormal rhythm (atrial fibrillation) Heart sounds: no click, no gallops, no murmurs and no rubs GI Inspection: Yes normal to inspection Palpation (GI): Soft to palpation Skin General skin exam: no rashes or lesions noted Neuro General: patient oriented x3 Extrem General: Yes normal to inspection Psych Appearance: grossly normal Assessment & Plan Assessment & Plan (1) New onset atrial fibrillation: Code(s): I48.91 - Unspecified atrial fibrillation (2) Abnormal stress test: Code(s): R94.39 - Abnormal result of other cardiovascular function study (3) SOB (shortness of breath): Code(s): R06.02 - Shortness of breath Plan New onset atrial fibrillation with controlled rates. Plan for cardioversion. Started eliquis 04/06/23 but only once a day. Educated on the importance for it to be twice a day for full coverage of anticoagulation, reduction of strokes, and for safety for the cardioversion. Signs and symptoms of stroke and bleeding reviewed. Must be on full anticoagulation for 4 full weeks without interruption. Patient agreed to plan and reports understanding. States that she is starting eliquis 5mg twice a day today. Coding Level of Care Code Est Pt Level 3 (51397) Diagnoses New onset atrial fibrillation I48.91 Abnormal stress test R94.39 SOB (shortness of breath) R06.02
== END 2023-04-24 13:36 | disposition home or self-care (01) ==
PROVIDERS: PCP Internal Medicine; Visit Provider Nurse Practitioner
DX: I48.91 Unspecified atrial fibrillation (principal); R94.39 Abnormal result of other cardiovascular function study; R06.02 Shortness of breath
CPT/HCPCS: 99213

== ENCOUNTER → 2023-04-24 12:49 | Outpatient (BNVA) | payer MEDICARE, SELFPAY | PROVIDERS: PCP Internal Medicine; Visit Provider Nurse Practitioner | DX: I48.91 Unspecified atrial fibrillation (principal); R94.39 Abnormal result of other cardiovascular function study; R06.02 Shortness of breath | CPT/HCPCS: 99212 ==

== ENCOUNTER 2023-05-15 11:03 | Outpatient (REF) | payer MEDICARE, SELFPAY ==
[2023-05-15 13:22] LABS: MANUAL DIFF FLAG NO
[2023-05-15 13:28] LABS: Basophils Absolute Auto 0.1 X10*3/uL (0.0-0.2); Basophils Percent Auto 1.1 % (0-2); Eosinophils Absolute Auto 0.2 X10*3/uL (0.0-0.4); Eosinophils Percent Auto 3.1 % (0-4); Hematocrit 40.4 % (37.0-47.0); Hemoglobin 13.2 g/dl (12.0-16.0); Imm Gran Abs Auto 0.02 X10*3/uL (0.00-0.03); Imm Gran Pct Auto 0.3 % (0.0-0.4); Lymphocytes Absolute Auto 1.6 X10*3/uL (1.2-4.9); Lymphocytes Percent Auto 25.2 % (20-40); Mean Corpuscular HGB Conc 32.7 g/dl (31.0-35.0); Mean Corpuscular Hemoglobin 29.7 pg (27.0-33.0); Mean Corpuscular Volume 90.8 fL (80.0-98.0); Mean Platelet Volume 10.4 fL (9.4-12.3); Monocytes Absolute Auto 0.7 X10*3/uL (0.1-1.2); Monocytes Percent Auto 11.4 % (2-11); Neutrophils Absolute Auto 3.8 x10*3/uL (2.0-8.3); Neutrophils Percent Auto 58.9 % (45-73); Platelet Count 265 X10*3/uL (160-400); Red Blood Count 4.45 X10*6/uL (4.20-5.50); Red Cell Distribution Width 12.6 % (11.0-16.0); White Blood Count 6.5 X10*3/uL (4.8-10.8)
[2023-05-15 13:53] LABS: Alanine Aminotransferase 13 U/L (0-31); Albumin Level 4.2 g/dL (3.5-5.0); Alkaline Phosphatase 92 U/L (39-117); Anion Gap 9 (12-20); Aspartate Amino Transferase 13 U/L (5-31); Bilirubin Total 0.8 mg/dL (0.0-1.0); Blood Urea Nitrogen 17 mg/dL (9-16); Calcium 9.5 mg/dL (8.4-10.2); Carbon Dioxide 25 mmol/L (22-29); Chloride 112 mmol/L (96-108); Estimated Glomerular Filt Rate 49; Glucose Random 91 mg/dL (60-115); Magnesium 2.2 mg/dL (1.6-2.6); Potassium 4.3 mmol/L (3.3-5.1); Sodium 142 mmol/L (135-145); Total Protein 6.9 g/dL (6.5-8.0)
[2023-05-15 14:15] LABS: Free T4 (Free Thyroxine) 1.02 ng/dL (0.71-1.85); Thyroid Stimulating Hormone 1.85 uIU/mL (0.32-4.0)
== END 2023-05-15 11:04 | disposition home or self-care (01) ==
LOC: HO.10HDL 11:03
PROVIDERS: Visit Provider Internal Medicine
DX: I48.91 Unspecified atrial fibrillation (principal); I10 Essential (primary) hypertension; E78.00 Pure hypercholesterolemia, unspecified
CPT/HCPCS: 36415; 80053; 83735; 84439; 84443; 85025

== ENCOUNTER 2023-05-24 07:07 | Day surgery (SDC) | payer MEDICARE, SELFPAY ==
[2023-05-22 12:17] VITALS: BMI 34.7
--- NOTE | 2023-05-23 08:23 | HO.ANESPROP2 ---
Documented by User: Hollie Toledo NP 05/23/23 08:25 HPI - Anesthesia Eval Consult details Narrative: 72yo F for Cardioversion Eliquis for afib PMFSH Active Problems Active Problems: All Active Problems (Updated 04/05/23 @ 10:07 by Eneida Jsoeph NP) Abnormal stress test (Acute) SOB (shortness of breath) (Acute) Osteoarthritis of left knee (Acute) New onset atrial fibrillation (Acute) Past Medical History Medical History New onset atrial fibrillation Acid reflux High cholesterol High blood pressure Family History Family History Mother No problems noted. Father No problems noted. 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5 Hgb 13.2 Hct 40.4 Plt Count 265 Sodium 142 Potassium 4.3 Chloride 112 H Carbon Dioxide 25 BUN 17 H Creatinine 1.09 Narrative Narrative: NM cardiolite stress test 04/2023 Impression: 1. Myocardial perfusion imaging study shows normal myocardial perfusion 2. Gated LVEF is 67% 3. Transient ischemic dilatation not present EKG is nondiagnostic for ischemia ECHO 04/2023 Conclusions: - 1. Normal LV ejection fraction of 60-65% with mild LVH with pseudonormal filling pattern 2. Normal cardiac valvular Doppler 3. Normal RV systolic pressure 4. Upper limits of normal ascending aortic size 5. No gross pericardial effusion Assessment and Plan Assessment Anesthesia Assessment: Chart Reviewed Documented by User: Lauryn Strong MD 05/24/23 08:02 PMFSH Past Medical History Medical History New onset atrial fibrillation Acid reflux High cholesterol High blood pressure Family History Family History Mother No problems noted. Father No problems noted. Maternal Aunt Stroke Family history of problems with anesthesia: No Surgical History Surgical History (Updated 05/22/23 @ 12:17 by Maryuri Go RN) History of esophagogastroduodenoscopy (EGD) H/O colonoscopy Hx of left knee surgery History of Problems with Anesthesia: No Social History Social History Alcohol intake: current Alcohol intake frequency: a few times a week Alcohol type: wine Patient Tobacco Use Status: Former Tobacco user Quit Date: years ago Use of substances other than those prescribed or required for medical reasons: No Are you DNR?: No Advance Directives: No Advance Directives Information Provided: Yes Current occupational status: employed 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 Meds Allergies Allergy/AdvReac Type Severity Reaction Status Date / Time No Known Allergies Allergy Unknown Verified 03/21/23 13:45 Home Medications Medication Instructions Recorded Confirmed Last Taken Type amlodipine 5 mg tablet 5 mg PO DAILY 06/24/21 05/22/23 05/24/23 History atorvastatin 20 mg tablet 20 mg PO DAILY 06/24/21 05/22/23 Unknown History omeprazole 20 mg capsule,delayed 20 mg PO DAILY 06/24/21 05/22/23 05/24/23 History release Exam Airway Mallampati Class: II TM Dist: >3cm Neck ROM: Limited Heart: a fib Lungs: cta Assessment and Plan Assessment Anesthesia Assessment: Anesthesia Plan Discussed Final Anesthetic Review Family History of Problems with Anesthesia: No History of Problems with Anesthesia: No NPO: Yes ASA Class: III and Emergency Final Preanesthetic Review: No Changes in Pt Med Stat, Meds/Allgs Chart Reviewed, Consent Obtained/Reviewed and Anes Risks/Benef Reviewed Patient Risk: Intermediate Procedure Risk: Low Anesthetic Plan Anesthetic Plan: MAC: Disposition: Standard PACU
[2023-05-24 08:02] VITALS: BP 139/86; PULSE 87; RESP 18; TEMP 36.4; O2SAT 98; BMI 34.3
[2023-05-24] MEDS: Lactated Ringers 1,000 ML 100 ML IVCONT (08:13)
--- NOTE | 2023-05-24 08:31 | P.CONAN_ITS ---
[facility] Active Problems Active Problems: All Active Problems (Updated 04/05/23 @ 10:07 by Eneida Joseph NP) Abnormal stress test (Acute) SOB (shortness of breath) (Acute) Osteoarthritis of left knee (Acute) New onset atrial fibrillation (Acute) Past Medical History Medical History New onset atrial fibrillation Acid reflux High cholesterol High blood pressure Family History Family History Mother No problems noted. Father No problems noted. Maternal Aunt Stroke Family history of problems with anesthesia: No Surgical History Surgical History (Updated 05/22/23 @ 12:17 by Maryuri Go RN) History of esophagogastroduodenoscopy (EGD) H/O colonoscopy Hx of left knee surgery History of Problems with Anesthesia: No Social History Social History Alcohol intake: current Alcohol intake frequency: a few times a week Alcohol type: wine Patient Tobacco Use Status: Former Tobacco user Quit Date: years ago Use of substances other than those prescribed or required for medical reasons: No Are you DNR?: No Advance Directives: No Advance Directives Information Provided: Yes Current occupational status: employed 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 Meds Allergies Allergy/AdvReac Type Severity Reaction Status Date / Time No Known Allergies Allergy Unknown Verified 03/21/23 13:45 Active Medications: Current Medications Lactated Ringer's (Lr) 1,000 mls @ 100 mls/hr IVCONT .Q10H LILA Last Admin: 05/24/23 08:13 Dose: 100 mls/hr Home Medications Medication Instructions Recorded Confirmed Last Taken Type amlodipine 5 mg tablet 5 mg PO DAILY 06/24/21 05/22/23 05/24/23 History atorvastatin 20 mg tablet 20 mg PO DAILY 06/24/21 05/22/23 Unknown History omeprazole 20 mg capsule,delayed 20 mg PO DAILY 06/24/21 05/22/23 05/24/23 History release Exam Height,Weight and Vital Signs: Height 5 ft 4 in Weight 90.718 kg Last Vital Signs Temp 97.5 F 05/24/23 08:02 Pulse 87 05/24/23 08:02 Resp 18 05/24/23 08:02 BP 139/86 05/24/23 08:02 Pulse Ox 98 05/24/23 08:02 O2 Del Method Room Air 05/24/23 08:02 Assessment and Plan Final Anesthetic Review Family History of Problems with Anesthesia: No History of Problems with Anesthesia: No
--- NOTE | 2023-05-24 09:06 | HO.CARDIVERS ---
Cardioversion Procedure Note Cardioversion Date of Procedure: 05/24/2023 Ordering Provider: Dr. Cárdenas Performing Provider: Dr. Cárdenas Indication for Procedure: Symptomatic atrial fibrillation Pre-Op Diagnosis: Atrial fibrillation Post-Op Diagnosis: Sinus rhythm OBDULIO findings (if OBDULIO Performed): Not performed History: See full office note Consent: Informed consent obtained. Procedure: After informed consent was obtained, patient was taken to the PACU. The patient was then positioned appropriately. The cardioversion pads were placed in anteroposterior position. Once under anesthesia, 150 joules of synchronized shock was administered. The rhythm converted from atrial fibrillation to sinus rhythm. Patient remained in sinus rhythm after the end of procedure. Complications: None. Impression: Successful cardioversion from atrial fibrillation to sinus rhythm. Recommendations: Continue beta-blockers. Add flecainide. Continue anticoagulation. Will arrange follow-up.
--- NOTE | 2023-05-24 09:07 | MHC.SHP ---
Pre-Procedural Eval Section A - 24 Hr Update-Section A only Date of Service: 05/24/23 The patient is an INPATIENT: No Section B - Complete if H&P > 30 days Chief Complaint: Unspecified atrial fibrillation Details of Present Illness: Newly diagnosed atrial fibrillation; short of breath; weakness Relevant Family History (Specify if Yes): No Relevant Social History: None Present Medications: see Short Stay Collaborative assessment Medical History: No relevant PMH History of Previous Operations: No relevant previous surgery Allergies: Allergies Allergy/AdvReac Type Severity Reaction Status Date / Time No Known Allergies Allergy Unknown Verified 03/21/23 13:45 Review of Systems Review of Systems Comment: 10 system review negative Exam Exam Comment: HEENT normal Neck normal Cardiac- normal heart sounds; no murmurs, gallops, rubs Resp- normal GI- normal Neuro- normal Ext- normal Plan I have reviewed the history and physical and performed a pertinent physical examination on my patient. No changes have occurred unless specified. Time Spent With Patient Time: Total time managing care of this patient today ____ minutes.
--- NOTE | 2023-05-24 09:26 | ECG_ITS ---
Test Reason : post cardioversion Blood Pressure : / mmHG Vent. Rate : 080 BPM Atrial Rate : 080 BPM P-R Int : 172 ms QRS Dur : 098 ms QT Int : 386 ms P-R-T Axes : 053 002 053 degrees QTc Int : 445 ms Normal sinus rhythm Nonspecific ST and T wave abnormality Abnormal ECG When compared with ECG of 26-DEC-2018 19:42, No significant change was found Referred By: Sivakumar Alexis Electronically Signed By:SIVAKUMAR ALEXIS
[2023-05-24 09:35] VITALS: BP 120/74; PULSE 78; RESP 15; TEMP 36.2; O2SAT 99
[2023-05-24 09:40] VITALS: BP 120/94; PULSE 72; RESP 15; O2SAT 99
[2023-05-24 09:45] VITALS: BP 132/91; PULSE 78; RESP 16; O2SAT 98
[2023-05-24 09:50] VITALS: BP 127/69; PULSE 74; RESP 16; O2SAT 98
[2023-05-24] MEDS: Flecainide Acetate 50 MG TABLET PO (09:53)
[2023-05-24 10:05] VITALS: BP 157/79; PULSE 75; RESP 16; TEMP 36.2; O2SAT 96
== END 2023-05-24 10:24 | disposition home or self-care (01) ==
PROVIDERS: PCP Internal Medicine; Visit Provider Internal Medicine
PROC: 5A2204Z Restoration of Cardiac Rhythm, Single (ICD-10-PCS; principal; 2023-05-24 09:00)
DX: I48.91 Unspecified atrial fibrillation (principal); I10 Essential (primary) hypertension; E78.00 Pure hypercholesterolemia, unspecified; R06.02 Shortness of breath; K21.9 Gastro-esophageal reflux disease without esophagitis; Z79.01 Long term (current) use of anticoagulants; Z79.899 Other long term (current) drug therapy; R94.39 Abnormal result of other cardiovascular function study
CPT/HCPCS: 92960; 93005; J2704

== ENCOUNTER → 2023-05-24 07:07 | Outpatient (BNV) | payer MEDICARE, SELFPAY | PROVIDERS: PCP Internal Medicine; Visit Provider Internal Medicine | DX: I48.91 Unspecified atrial fibrillation (principal); R94.31 Abnormal electrocardiogram [ECG] [EKG] | CPT/HCPCS: 92960; 93010 ==

== ENCOUNTER → 2023-06-04 08:11 | Outpatient (REF) | payer MEDICARE, SELFPAY ==
--- NOTE | 2023-06-04 08:16 | HM_ITS ---
Conclusion: 1. Patient was monitored for total period of 2 days 2. Baseline was normal sinus rhythm with average heart of 61 beats per minute 3. Frequent sinus bradycardia noted with 43.6% of time heart rate below 60 beats per minute with no significant pauses 4. Rare ectopy noted 5. Patient reported 1 event of irregular heartbeat correlating with sinus bradycardia MTDD
== END ==
LOC: HO.CARD 08:11
PROVIDERS: PCP Internal Medicine; Visit Provider Internal Medicine
DX: I48.91 Unspecified atrial fibrillation (principal)
CPT/HCPCS: 93242

== ENCOUNTER → 2023-06-04 08:16 | Outpatient (BNV) | payer MEDICARE, SELFPAY | PROVIDERS: PCP Internal Medicine; Visit Provider Internal Medicine Cardiovascular Disease | DX: I48.91 Unspecified atrial fibrillation (principal) | CPT/HCPCS: 93244 ==

== ENCOUNTER 2023-07-10 13:45 | Outpatient (AMB) | payer MEDICARE, SELFPAY ==
[2023-07-10 13:52] VITALS: BP 124/62; PULSE 80; BMI 34.4
--- NOTE | 2023-07-10 13:52 | MHC.OFFVIS ---
Vital Signs 07/10/23 13:52 Height 5 ft 4 in Weight 200 lb 2.876 oz BMI 34.4 BP 124/62 Blood Pressure Location Lt brachial Position Sitting Pulse 80 Intake Visit Reasons: follow up Multi Share Program Coordinator Required: No Accompanied by: Self / Same As Patient Allergies No Known Allergies Allergy (Unknown, Verified 03/21/23 13:45) Medication List - Last Reconciled 07/10/23 by Stephan Cárdenas MD amlodipine 5 mg PO DAILY apixaban (Eliquis) 5 mg PO BID atorvastatin 20 mg PO DAILY flecainide 50 mg PO Q12H 90 days metoprolol succinate ER 50 mg PO DAILY omeprazole 20 mg PO DAILY HPI Comments Details: Racheal returns for follow-up. She was initially seen in consultation regarding a question of abnormal stress test that showed ST depression and symptoms of shortness of breath. Then we arranged a a repeat study with nuclear perfusion but when she came in she was in atrial fibrillation. Eventually, she underwent cardioversion after appropriate anticoagulation. Today, she states that she is actually feeling much better. Shortness of breath is improved. Hence not clear if she was just having atrial fibrillation episodes in the past causing shortness of breath or not. Currently, on flecainide and metoprolol. Overall, doing good. [facility] Medical History (Updated 07/10/23 @ 14:11 by Stephan Cárdenas MD) New onset atrial fibrillation Acid reflux High cholesterol High blood pressure Surgical History History of esophagogastroduodenoscopy (EGD) H/O colonoscopy Hx of left knee surgery Family History Mother No problems noted. Father No problems noted. 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 Review of Systems Const All systems reviewed & are unremarkable except as noted in HPI and below Reports as per HPI and Reports no additional complaints Eyes Reports as per HPI and Denies no additional complaints ENT Denies no additional complaints and Reports as per HPI Card Reports as per HPI, Reports no additional complaints, Denies acrocyanosis, Denies chest pain, Denies leg edema, Denies lightheadedness, Denies palpitations and Denies dyspnea Resp Reports as per HPI, Denies no additional complaints and Denies dyspnea GI Reports as per HPI and Denies no additional complaints Reports as per HPI Musc Reports no additional complaints and Reports as per HPI Skin/Breast Reports system reviewed and no additional complaints, except as documented Neuro Reports no additional complaints and Reports as per HPI Psych Reports no additional complaints and Reports as per HPI Endo Reports no additional complaints, Reports as per HPI and Denies palpitations Ronald/Lymph Reports no additional complaints and Reports as per HPI Aller/Immun Reports no additional complaints and Reports as per HPI Physical Exam Vital Signs: Last Vital Signs Pulse 80 07/10/23 13:52 BP 124/62 07/10/23 13:52 BMI result Body Mass Index 34.4 Const General: comfortable and no acute distress Orientation/consciousness: patient oriented x3 HEENT Other: Unremarkable Head: Yes normal to inspection Neck Neck: Yes normal visual inspection Chest Chest palpation & inspection: normal inspection of the chest Resp Auscultation: clear to auscultation bilaterally Cardio Palpation: normal PMI Heart sounds: S1 normal heart sound present, S2 normal heart sound present, no gallops, no murmurs and no rubs GI Palpation (GI): Soft to palpation Back/Spine/Pelvis Other: unremarkable Skin General skin exam: no rashes or lesions noted Neuro General: patient oriented x3 Extrem General: Yes normal to inspection Psych Mental Status: mental status grossly normal Office Procedures EKG Details: EKG with sinus rhythm at 80/Min; nonspecific ST-T changes; [place]. 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 Echocardiogram with LVEF of 60-65%. Moderate diastolic dysfunction and otherwise unremarkable. Myocardial perfusion imaging study was unremarkable. Initial Holter showed atrial fibrillation throughout. Now she is status post cardioversion and the repeat Holter shows sinus rhythm only. She is stable on combination of metoprolol and flecainide and that can be continued. Continue anticoagulation. She does drink wine frequently and discussed about that. Advised to cut back. Discussed about sleep apnea but she would not like to undergo sleep study or use CPAP if necessary. Follow-up in 6 months. Coding Level of Care Code Est Pt Level 4 (38324) Diagnoses Paroxysmal atrial fibrillation I48.0 Encounter for monitoring flecainide therapy Z51.81; Z79.899 CPT Codes EKG - CPT: 46359-[id number], Complete ([id number])
== END 2023-07-10 14:09 | disposition home or self-care (01) ==
PROVIDERS: PCP Internal Medicine; Visit Provider Internal Medicine
DX: I48.0 Paroxysmal atrial fibrillation (principal); Z51.81 Encounter for therapeutic drug level monitoring; Z79.899 Other long term (current) drug therapy
CPT/HCPCS: 93010; 99214

== ENCOUNTER → 2023-07-10 13:45 | Outpatient (BNVA) | payer MEDICARE, SELFPAY | PROVIDERS: PCP Internal Medicine; Visit Provider Internal Medicine | DX: I48.0 Paroxysmal atrial fibrillation (principal); Z79.01 Long term (current) use of anticoagulants; Z79.899 Other long term (current) drug therapy | CPT/HCPCS: 93005; 99212 ==

== ENCOUNTER 2023-10-24 10:56 | Outpatient (REF) | payer MEDICARE, SELFPAY ==
[2023-10-24 13:23] LABS: MANUAL DIFF FLAG NO
[2023-10-24 13:29] LABS: Basophils Absolute Auto 0.1 X10*3/uL (0.0-0.2); Basophils Percent Auto 0.9 % (0-2); Eosinophils Absolute Auto 0.2 X10*3/uL (0.0-0.4); Eosinophils Percent Auto 3.1 % (0-4); Hematocrit 40.2 % (37.0-47.0); Hemoglobin 12.9 g/dl (12.0-16.0); Imm Gran Abs Auto 0.01 X10*3/uL (0.00-0.03); Imm Gran Pct Auto 0.2 % (0.0-0.4); Lymphocytes Absolute Auto 1.8 X10*3/uL (1.2-4.9); Lymphocytes Percent Auto 26.9 % (20-40); Mean Corpuscular HGB Conc 32.1 g/dl (31.0-35.0); Mean Corpuscular Hemoglobin 30.2 pg (27.0-33.0); Mean Corpuscular Volume 94.1 fL (80.0-98.0); Mean Platelet Volume 10.7 fL (9.4-12.3); Monocytes Absolute Auto 0.7 X10*3/uL (0.1-1.2); Monocytes Percent Auto 10.7 % (2-11); Neutrophils Absolute Auto 3.8 x10*3/uL (2.0-8.3); Neutrophils Percent Auto 58.2 % (45-73); Platelet Count 289 X10*3/uL (160-400); Red Blood Count 4.27 X10*6/uL (4.20-5.50); Red Cell Distribution Width 12.4 % (11.0-16.0); White Blood Count 6.5 X10*3/uL (4.8-10.8)
[2023-10-24 13:50] LABS: Anion Gap 11 (12-20); Blood Urea Nitrogen 17 mg/dL (9-16); Calcium 9.8 mg/dL (8.4-10.2); Carbon Dioxide 27 mmol/L (22-29); Chloride 107 mmol/L (96-108); Estimated Glomerular Filt Rate 54; Glucose Random 99 mg/dL (60-115); Potassium 3.8 mmol/L (3.3-5.1); Sodium 141 mmol/L (135-145)
== END 2023-10-24 10:57 | disposition home or self-care (01) ==
LOC: HO.10HDL 10:56
PROVIDERS: Visit Provider Internal Medicine
DX: I12.9 Hypertensive chronic kidney disease with stage 1 through stage 4 chronic kidney disease, or unspecified chronic kidney disease (principal); N18.9 Chronic kidney disease, unspecified; I48.0 Paroxysmal atrial fibrillation
CPT/HCPCS: 36415; 80048; 85025

== ENCOUNTER 2023-12-20 08:19 | Outpatient (REF) | payer MEDICARE, SELFPAY ==
--- NOTE | ~2023-12-20 | MM_ITS ---
EXAMINATION: MM SCREENING DIGITAL BREAST TOMOSYNTHESIS, BILATERAL CLINICAL INFORMATION: Screening. Asymptomatic. COMPARISON: Mammography: Comparison is made with available priors TECHNIQUE: Digital breast mammography with tomosynthesis is performed in both the craniocaudal and mediolateral oblique views along with computer-aided detection (CAD). FINDINGS: There are scattered areas of fibroglandular density (ACR BI-RADS breast composition Category b). There are no significant masses, abnormal calcifications, or other abnormalities. MM/MM tomosynthesis screening BI IMPRESSION: No mammographic evidence of malignancy. ASSESSMENT: BI-RADS BI-RADS 1 - Negative RECOMMENDATION: Routine annual mammography screening. 1 year F/U This examination should not preclude the clinical evaluation of a suspicious palpable abnormality. This patient's information was entered into a reminder system with a target due date for their next mammogram. Electronically signed by: Palak Monzon DO 01/01/2024 12:27 PM EDT
== END 2023-12-20 08:20 | disposition home or self-care (01) ==
LOC: HO.MAMMO 08:19
PROVIDERS: PCP Internal Medicine; Visit Provider Internal Medicine
DX: Z12.31 Encounter for screening mammogram for malignant neoplasm of breast (principal)
CPT/HCPCS: 77063; 77067

== ENCOUNTER → 2023-12-20 08:30 | Outpatient (BNV) | payer MEDICARE, SELFPAY | PROVIDERS: PCP Internal Medicine; Visit Provider Internal Medicine | DX: Z12.31 Encounter for screening mammogram for malignant neoplasm of breast (principal) | CPT/HCPCS: 77063; 77067 ==

== ENCOUNTER 2024-01-15 09:58 | Outpatient (AMB) | payer MEDICARE, SELFPAY ==
--- NOTE | 2024-01-15 10:16 | MHC.OFFVIS ---
Vital Signs 01/15/24 10:17 Height 5 ft 4 in Weight 204 lb 2.369 oz BMI 35.0 BP 132/80 Blood Pressure Location Lt brachial Position Sitting Pulse 56 Intake Visit Reasons: 6 mth f/up Critical Care Transport Nurse Required: No Accompanied by: Self / Same As Patient Allergies No Known Allergies Allergy (Unknown, Verified 03/21/23 13:45) Medication List - Last Reconciled 01/15/24 by Stephan Cárdenas MD amlodipine 5 mg PO DAILY apixaban (Eliquis) 5 mg PO BID 90 days atorvastatin 20 mg PO DAILY flecainide 50 mg PO Q12H 90 days metoprolol succinate ER 50 mg PO DAILY omeprazole 20 mg PO DAILY HPI Comments Details: aRcheal returns for follow-up. She was initially seen in consultation regarding a question of abnormal stress test that showed ST depression and symptoms of shortness of breath. Then we arranged a a repeat study with nuclear perfusion but when she came for the test, she was in atrial fibrillation. Then underwent cardioversion in 05/2023, after appropriate anticoagulation. She is maintained on flecainide/metoprolol/Eliquis. Overall, she states that she feels okay but she feels like the medications are slowing her down a lot. No clear-cut cardiac symptoms otherwise. [facility] Medical History (Updated 07/10/23 @ 14:11 by Stephan Cárdenas MD) New onset atrial fibrillation Acid reflux High cholesterol High blood pressure Surgical History History of esophagogastroduodenoscopy (EGD) H/O colonoscopy Hx of left knee surgery Family History Mother No problems noted. Father No problems noted. 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 Review of Systems Const Denies chills, Denies fatigue, Denies fever(s), Denies weight gain and Denies weight loss ENT Denies dizziness Card Denies chest pain, Denies leg edema, Denies lightheadedness, Denies palpitations, Denies dyspnea on exertion, Denies orthopnea and Denies other Resp Denies cough and Denies dyspnea on exertion GI Denies hematochezia and Denies change in stool character Musc Denies abnormal gait, Denies muscle weakness, Denies numbness, Denies radiating pain into limb and Denies tingling Neuro Denies abnormal gait, Denies dizziness, Denies numbness and Denies tingling Endo Denies fatigue and Denies palpitations Physical Exam Vital Signs: Last Vital Signs Pulse 56 01/15/24 10:17 BP 132/80 01/15/24 10:17 BMI result Body Mass Index 35.0 Const General: comfortable and no acute distress Orientation/consciousness: patient oriented x3 HEENT Other: Unremarkable Head: Yes normal to inspection Neck Neck: Yes normal visual inspection Chest Chest palpation & inspection: normal inspection of the chest Resp Auscultation: clear to auscultation bilaterally Cardio Palpation: normal PMI Heart sounds: S1 normal heart sound present, S2 normal heart sound present, no gallops, no murmurs and no rubs GI Palpation (GI): Soft to palpation Back/Spine/Pelvis Other: unremarkable Skin General skin exam: no rashes or lesions noted Neuro General: patient oriented x3 Extrem General: Yes normal to inspection Psych Mental Status: mental status grossly normal Office Procedures EKG Details: EKG with sinus bradycardia at 56/Min; no significant ST-T changes; [place] 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 Echocardiogram with LVEF of 60-65%. Moderate diastolic dysfunction and otherwise unremarkable. Myocardial perfusion imaging study was unremarkable. Initial Holter showed atrial fibrillation throughout. Now she is status post cardioversion and the repeat Holter shows sinus rhythm only. She states that the medications slowing her down a lot and she is not able to perform her activities as she would like. She always feels tired and fatigued. Hence we discussed about ablation and she is interested. We will refer her to EP for the same. Post ablation, she will be able to at least stop the flecainide and lower the dose of beta-blockers and hopefully that will make her feel better. Continue anticoagulation without changes. Otherwise, she does drink wine regularly and we advised not taken any excessive. She is not interested in sleep study. We will see her back after EP consultation. Orders: Referrals Cardiac Electrophysiology Referral I48.0 - Paroxysmal atrial fibrillation Coding Level of Care Code Est Pt Level 4 (23248) Diagnoses Paroxysmal atrial fibrillation I48.0 Encounter for monitoring flecainide therapy Z51.81; Z79.899 CPT Codes EKG - CPT: 11474-[id number], Complete ([id number])
[2024-01-15 10:17] VITALS: BP 132/80; PULSE 56; BMI 35.0
== END 2024-01-15 10:51 | disposition home or self-care (01) ==
PROVIDERS: PCP Internal Medicine; Visit Provider Internal Medicine
DX: I48.0 Paroxysmal atrial fibrillation (principal); Z51.81 Encounter for therapeutic drug level monitoring; Z79.899 Other long term (current) drug therapy
CPT/HCPCS: 93010; 99214

== ENCOUNTER → 2024-01-15 09:58 | Outpatient (BNVA) | payer MEDICARE, SELFPAY | PROVIDERS: PCP Internal Medicine; Visit Provider Internal Medicine | DX: I48.0 Paroxysmal atrial fibrillation (principal); Z51.81 Encounter for therapeutic drug level monitoring; Z79.899 Other long term (current) drug therapy | CPT/HCPCS: 93005; 99212 ==

== ENCOUNTER 2024-03-10 08:58 | Outpatient (REF) | payer MEDICARE, SELFPAY ==
[2024-03-10 10:19] LABS: MANUAL DIFF FLAG NO
[2024-03-10 10:28] LABS: Basophils Absolute Auto 0.1 X10*3/uL (0.0-0.2); Basophils Percent Auto 0.9 % (0-2); Eosinophils Absolute Auto 0.2 X10*3/uL (0.0-0.4); Eosinophils Percent Auto 2.9 % (0-4); Hemoglobin 13.5 g/dl (12.0-16.0); Imm Gran Abs Auto 0.02 X10*3/uL (0.00-0.03); Imm Gran Pct Auto 0.3 % (0.0-0.4); Lymphocytes Absolute Auto 2.2 X10*3/uL (1.2-4.9); Lymphocytes Percent Auto 28.2 % (20-40); Mean Corpuscular HGB Conc 32.9 g/dl (31.0-35.0); Mean Corpuscular Hemoglobin 30.5 pg (27.0-33.0); Mean Corpuscular Volume 92.6 fL (80.0-98.0); Mean Platelet Volume 10.7 fL (9.4-12.3); Monocytes Absolute Auto 0.9 X10*3/uL (0.1-1.2); Neutrophils Absolute Auto 4.4 x10*3/uL (2.0-8.3); Neutrophils Percent Auto 55.7 % (45-73); Platelet Count 274 X10*3/uL (160-400); Red Blood Count 4.43 X10*6/uL (4.20-5.50); Red Cell Distribution Width 12.3 % (11.0-16.0); White Blood Count 7.8 X10*3/uL (4.8-10.8)
[2024-03-10 11:35] LABS: Alanine Aminotransferase 15 U/L (0-31); Albumin Level 4.2 g/dL (3.5-5.0); Alkaline Phosphatase 93 U/L (39-117); Anion Gap 9 (12-20); Aspartate Amino Transferase 19 U/L (5-31); Bilirubin Total 0.5 mg/dL (0.0-1.0); Blood Urea Nitrogen 22 mg/dL (9-16); Calcium 9.6 mg/dL (8.4-10.2); Carbon Dioxide 23 mmol/L (22-29); Chloride 112 mmol/L (96-108); Cholesterol 191 mg/dL (<200); Estimated Glomerular Filt Rate 49; Glucose Fasting 97 mg/dL (60-99); HDL Cholesterol 69 mg/dL (>40); LDL Cholesterol Calculated 93 mg/dL (<100); Potassium 4.4 mmol/L (3.3-5.1); Sodium 140 mmol/L (135-145); Total Protein 7.1 g/dL (6.5-8.0); Triglycerides 147 mg/dL (<150)
== END 2024-03-10 08:59 | disposition home or self-care (01) ==
LOC: HO.10HDL 08:58
PROVIDERS: Visit Provider Internal Medicine
DX: E78.00 Pure hypercholesterolemia, unspecified (principal); K21.9 Gastro-esophageal reflux disease without esophagitis; I12.9 Hypertensive chronic kidney disease with stage 1 through stage 4 chronic kidney disease, or unspecified chronic kidney disease; N18.9 Chronic kidney disease, unspecified
CPT/HCPCS: 36415; 80053; 80061; 85025

== ENCOUNTER 2024-07-22 09:10 | Outpatient (AMB) | payer MEDICARE, SELFPAY ==
--- NOTE | 2024-07-22 09:49 | MHC.OFFVIS ---
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 She was initially seen in consultation regarding a question of abnormal stress test that showed ST depression and symptoms of shortness of breath. Then we arranged a a repeat study with nuclear perfusion but when she came for the test, she was in atrial fibrillation. Then underwent cardioversion in 05/2023, after appropriate anticoagulation. She was on flecainide and metoprolol. However, she was having side effects like slowing down and hence saw EP and underwent ablation last month. Overall, she states she is doing fine post ablation. No new cardiac symptoms. [facility] Medical History (Updated 07/10/23 @ 14:11 by Stephan Cárdenas MD) New onset atrial fibrillation Acid reflux High cholesterol High blood pressure Surgical History History of esophagogastroduodenoscopy (EGD) H/O colonoscopy Hx of left knee surgery Family History Mother No problems noted. Father No problems noted. 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 Review of Systems Const Denies chills, Denies fatigue, Denies fever(s), Denies frequent falls, Denies weakness, Denies weight gain and Denies weight loss ENT Denies dizziness Card Denies chest pain, Denies leg edema, Denies lightheadedness, Denies palpitations, Denies dyspnea and Denies dyspnea on exertion Resp Denies cough, Denies dyspnea and Denies dyspnea on exertion GI Denies hematochezia Musc Denies abnormal gait, Denies muscle weakness, Denies numbness, Denies radiating pain into limb and Denies tingling Neuro Denies abnormal gait, Denies dizziness, Denies frequent falls, Denies numbness, Denies tingling and Denies weakness Endo Denies fatigue and Denies palpitations Physical Exam Vital Signs: Last Vital Signs Pulse 54 07/22/24 09:50 BP 130/72 07/22/24 09:50 BMI result Body Mass Index 36.6 Const General: comfortable and no acute distress Orientation/consciousness: patient oriented x3 HEENT Other: Unremarkable Head: Yes normal to inspection Neck Neck: Yes normal visual inspection Chest Chest palpation & inspection: normal inspection of the chest Resp Auscultation: clear to auscultation bilaterally Cardio Palpation: normal PMI Heart sounds: S1 normal heart sound present, S2 normal heart sound present, no gallops, no murmurs and no rubs GI Palpation (GI): Soft to palpation Back/Spine/Pelvis Other: unremarkable Skin General skin exam: no rashes or lesions noted Neuro General: patient oriented x3 Extrem General: Yes normal to inspection Psych Mental Status: mental status grossly normal Office Procedures EKG Details: EKG with sinus bradycardia at 54/Min; no significant ST-T changes and otherwise unremarkable. [place]. 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 Echocardiogram with LVEF of 60-65%. Moderate diastolic dysfunction and otherwise unremarkable. Myocardial perfusion imaging study was unremarkable. She is status post pulmonary vein and posterior left atrial wall isolation from 06/2024. Remains stable. Continue metoprolol. Stop flecainide. Continue Eliquis. Sleep study discussed in the past but not interested. To moderate alcohol intake. Follow up in 6 months with another Holter. Discussion Notes I discussed with the patient the current status of her Atrial Fibrillation post-ablation, highlighting the success of the procedure in preventing further episodes. We reviewed the decision to stop Flecainide, considering the stable post-procedure state. The need for continued monitoring through future appointments and the use of a heart monitor in six months was emphasized. I instructed the patient to reach out with any emerging symptoms or questions in the interim, ensuring a collaborative approach to her ongoing care. Patient was informed and verbally consented to the use of an ambient scribe for clinic note documentation during this visit. Medications: Discontinued flecainide Discontinued Reason: Doctor's Order 50 mg PO Q12H 90 days 180 tabs 3RF Patient Instructions: - Stop taking Flecainide as advised. - Monitor your heart symptoms and alert me if anything changes. - We'll do a heart monitor check in 6 months. - You can call me if you have any questions or feel any new symptoms. - Follow through with your daily activities, but adjust as needed based on your comfort. - Remember, it?s normal to have some limits with activity as you get older. Coding Level of Care Code Est Pt Level 4 (35616) Complex EM visit Add On G2211 Diagnoses Paroxysmal atrial fibrillation I48.0 Encounter for monitoring flecainide therapy Z51.81; Z79.899 CPT Codes EKG - CPT: 65169-[id number], Complete ([id number])
[2024-07-22 09:50] VITALS: BP 130/72; PULSE 54; BMI 36.6
== END 2024-07-22 10:06 | disposition home or self-care (01) ==
LOC: HO.HCS 09:11
PROVIDERS: PCP Internal Medicine; Visit Provider Internal Medicine
DX: I48.0 Paroxysmal atrial fibrillation (principal); Z51.81 Encounter for therapeutic drug level monitoring; Z79.899 Other long term (current) drug therapy
CPT/HCPCS: 93010; 99214; G2211

== ENCOUNTER → 2024-07-22 09:10 | Outpatient (BNVA) | payer MEDICARE, SELFPAY | PROVIDERS: PCP Internal Medicine; Visit Provider Internal Medicine | DX: I48.0 Paroxysmal atrial fibrillation (principal); Z51.81 Encounter for therapeutic drug level monitoring; Z79.899 Other long term (current) drug therapy | CPT/HCPCS: 93005; 99212 ==

== ENCOUNTER 2024-07-31 09:50 | Outpatient (AMB) | payer MEDICARE, SELFPAY ==
--- NOTE | 2024-07-31 09:51 | A.OFFPC_ITS ---
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 Accompanied by: Self / Same As Patient Allergies No Known Allergies Allergy (Unknown, Verified 07/31/24 09:54) Tobacco use date assessed: 07/31/24 Fall risk assessment: No Falls in past year Last assessed Fall Risk: 07/31/24 Dental Screening Dental Screen Date: 07/31/24 Did you have a dental visit in the last 12 months?: Yes Did you have a dental problem in the last 6 months where you did not have access to dental care?: No HPI HPI Comments History of Present Illness Details The patient is a 74 year old female with a past medical history of atrial fibrillation, htn, hld, GERD, CKD, presenting for follow up CV: On eliquis, atorvastatin, metoprolol. Following with cardiology. She underwent cardioversion in 05/2023. Off flecainide. MSK: S/p left knee replacement. Considering right knee replacement-Dr Aragon. Active [facility] History of skin cancer:RADHA. She will call she believes she is overdue mammo 12/20/2023 Colon cancer screening was with [facility]-she will call [facility] CONSTITUTIONAL: Denies weight loss, fever and chills. HEENT: Denies changes in vision and hearing. RESPIRATORY: Denies SOB and cough. CV: Denies palpitations and CP GI: Denies abdominal pain, nausea, vomiting and diarrhea. : Denies dysuria and urinary frequency. MSK: b/l knee pain SKIN: Denies rash and pruritus. NEUROLOGICAL: Denies headache PSYCHIATRIC: Denies recent changes in mood. PHYSICAL EXAM: GENERAL: Alert and oriented x 3. NAD EYES: EOMI. Anicteric. HENT: Moist mucous membranes. No scleral icterus. No cervical lymphadenopathy. LUNGS: Clear to auscultation bilaterally. CARDIOVASCULAR: Regular rate and rhythm. No murmur. No JVD. ABDOMEN: Soft, non-tender +bs EXTREMITIES: No edema. Non-tender. SKIN: No rashes or lesions. Warm. NEUROLOGIC: No focal neurological deficits. CN II-XII grossly intact PSYCHIATRIC: Cooperative. Appropriate mood and affect [facility] Medical History (Updated 07/31/24 @ 11:48 by Shannan Hodges MD) New onset atrial fibrillation Acid reflux High cholesterol High blood pressure Surgical History History of esophagogastroduodenoscopy (EGD) H/O colonoscopy Hx of left knee surgery Family History Mother No problems noted. Father No problems noted. 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 1. Little interest or pleasure in doing things: not at all 2. Feeling down, depressed, or hopeless: not at all 3. Trouble falling or staying asleep, or sleeping too much: not at all 4. Feeling tired or having little energy: not at all 5. Poor appetite or overeating: not at all 6. Feeling bad about yourself - or that you are a failure or have let yourself or your family down: not at all 7. Trouble concentrating on things, such as reading the newspaper or watching television: not at all 8. Moving or speaking so slowly that other people could have noticed. Or the opposite - being so fidgety or restless that you have been moving around a lot more than usual: not at all 9. Thoughts that you would be better off or of hurting yourself in some way: not at all Total score: 0 Depression Screening Interpretation: Negative Depression Screening Done: Yes 90902 - PHQ-9 Billing: Yes Source: Developed by Drs. Luca Jurado, Gracy Shafer, Panfilo Levy and colleagues, with an educational stef from [employer]. Thrive Questionnaire Date Thrive assessed: 07/31/24 I am a: Patient Within the past 12 months, did the food you bought not last and you didn't have the money to get more?: Never true Within the past 12 months, did you worry whether your food would run out before you got money to buy more?: Never true Do you have trouble paying for medicines?: No Do you have trouble getting transportation to medical appointments?: No Do you have trouble paying your heating and electricity bill?: No Do you have trouble taking care of your child, family member or friend?: No Do you have trouble with day-to-day activities such as bathing, preparing meals, shopping, managing finances, etc.?: No Are you currently unemployed and looking for a job?: No Are you interested in more education?: No THRIVE Score: 0 AUDIT C Alcohol Use Questionnaire (AUDIT-C) 1. How often do you have a drink containing alcohol?: Monthly or less 2. How many drinks containing alcohol do you have on a typical day when you are drinking?: 1 or 2 3. How often do you have six or more drinks on one occasion?: Less than monthly Total Score: 2 ELIZABETH-7 AMB Questionnaire ELIZABETH-7 Date ELIZABETH - 7 assessed: 07/31/24 Feeling nervous, anxious, or on edge: 0 = Not at all Not being able to stop or control worryin = Not at all Worrying too much about different things: 0 = Not at all Trouble relaxin = Not at all Being so restless that it is hard to sit still: 0 = Not at all Becoming easily annoyed or irritable: 0 = Not at all Feeling afraid as if something awful might happen: 0 = Not at all Total ELIZABETH-7 score (0-4 normal; 5-9 mild; 10-14 moderate; 15-21 severe): 0 Source: Developed by Drs. Luca Jurado, Gracy Shafer, Panfilo Levy and colleagues, with an educational stef from [employer]. Physical exam (Primary Care) Vital Signs: Last Vital Signs Temp 97.7 F 07/31/24 09:52 Pulse 58 07/31/24 09:52 BP 122/70 07/31/24 09:52 Pulse Ox 98 07/31/24 09:52 Oxygen Delivery Method Room Air 07/31/24 09:52 BMI result Body Mass Index 36.4 Tobacco/Smoking Status: Tobacco use Status Tobacco use date assessed 07/31/24 07/31/24 10:10 Patient Tobacco Use Status Former Tobacco user 07/31/24 09:53 e-Cigarette/Vaping Use Former Use 07/31/24 10:10 PHQ-9: PHQ-9 Score PHQ-9: Total score 0 07/31/24 10:18 Depression Screening Interpretation: Negative Thrive Assessment: Date of Thrive Assessment Date Thrive assessed 07/31/24 07/31/24 10:10 Coding Level of Care Code New Pt Level 4 (07174) Complex EM visit Add On G2211 Diagnoses Primary osteoarthritis of left knee M17.12 Osteoarthritis type: primary Paroxysmal atrial fibrillation I48.0 Leg heaviness R29.898 Additional Codes PHQ-9 - 41145 - PHQ-9 Billing: Yes ([id number]) Assessment & Plan Assessment & Plan (1) Osteoarthritis of left knee: Code(s): M17.12 - Unilateral primary osteoarthritis, left knee Category: Medical Qualifiers: Osteoarthritis type: primary Qualified Code(s): M17.12 - Unilateral primary osteoarthritis, left knee (2) Paroxysmal atrial fibrillation: Code(s): I48.0 - Paroxysmal atrial fibrillation Category: Medical (3) Leg heaviness: Code(s): R29.898 - Other symptoms and signs involving the musculoskeletal system Category: Medical Plan 74 year old female to establish Past medical, surgical social reviewed Mammo ordered Labs ordered HTN well controlled on current medications Afib on AC and rate control Orders: Orders MM screening mammo BI 5 Months Z12.31 - Encounter for screening mammogram for malignant neoplasm of breast Complete Blood Count Auto Diff Today I48.0 - Paroxysmal atrial fibrillation, I48.91 - Unspecified atrial fibrillation, M17.12 - Unilateral primary osteoarthritis, left knee, Z13.0 - Encounter for screening for diseases of the blood and blood-forming organs and certain disorders involving the immune mechanism Comprehensive Met. Panel Today I48.0 - Paroxysmal atrial fibrillation, I48.91 - Unspecified atrial fibrillation, M17.12 - Unilateral primary osteoarthritis, left knee, Z13.0 - Encounter for screening for diseases of the blood and blood- forming organs and certain disorders involving the immune mechanism TSH reflex Free T4 Today I48.0 - Paroxysmal atrial fibrillation, I48.91 - Unspecified atrial fibrillation, M17.12 - Unilateral primary osteoarthritis, left knee, Z13.0 - Encounter for screening for diseases of the blood and blood- forming organs and certain disorders involving the immune mechanism Lyme IgG/IgM w/reflex to WB Today R29.898 - Other symptoms and signs involving the musculoskeletal system Lipid Panel Today I48.0 - Paroxysmal atrial fibrillation, I48.91 - Unspecified atrial fibrillation, M17.12 - Unilateral primary osteoarthritis, left knee, Z13. 0 - Encounter for screening for diseases of the blood and blood-forming organs and certain disorders involving the immune mechanism Medications: New amlodipine 5 mg PO DAILY 90 tabs 3RF Refilled apixaban (Eliquis) 5 mg PO BID 90 days 180 tabs 3RF atorvastatin 20 mg PO DAILY 90 tabs 3RF omeprazole 20 mg PO DAILY 90 caps 3RF
[2024-07-31 09:52] VITALS: BP 122/70; PULSE 58; TEMP 36.5; O2SAT 98; BMI 36.4
== END 2024-07-31 10:50 | disposition home or self-care (01) ==
LOC: HO.HMCHD 09:51
PROVIDERS: PCP Internal Medicine; Visit Provider Internal Medicine
DX: M17.12 Unilateral primary osteoarthritis, left knee (principal); I48.0 Paroxysmal atrial fibrillation; R29.898 Other symptoms and signs involving the musculoskeletal system

== ENCOUNTER → 2024-07-31 09:50 | Outpatient (BNVA) | payer MEDICARE, SELFPAY | PROVIDERS: PCP Internal Medicine; Visit Provider Internal Medicine | DX: I10 Essential (primary) hypertension (principal); I48.0 Paroxysmal atrial fibrillation; E78.5 Hyperlipidemia, unspecified; K21.9 Gastro-esophageal reflux disease without esophagitis; N18.9 Chronic kidney disease, unspecified; M17.12 Unilateral primary osteoarthritis, left knee; R29.898 Other symptoms and signs involving the musculoskeletal system | CPT/HCPCS: 96127; 99202 ==

== ENCOUNTER 2024-11-27 14:39 | Outpatient (AMB) | payer MEDICARE, SELFPAY ==
[2024-11-27 08:35] VITALS: BP 124/72; PULSE 70; TEMP 36.2; O2SAT 97; BMI 35.2
--- NOTE | 2024-11-27 08:35 | MHC.PC.OV ---
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 Required: No Accompanied by: Self / Same As Patient Allergies No Known Allergies Allergy (Unknown, Verified 11/27/24 08:35) Medication List - Last Reconciled 11/27/24 by GARRY Schuler amlodipine 5 mg PO DAILY apixaban (Eliquis) 5 mg PO BID 90 days atorvastatin 20 mg PO DAILY docusate sodium 100 mg PO BID PRN metoprolol succinate ER 50 mg PO DAILY omeprazole 20 mg PO DAILY Tobacco use date assessed: 11/27/24 Fall risk assessment: No Falls in past year Last assessed Fall Risk: 11/27/24 Dental Screening Dental Screen Date: 11/27/24 Did you have a dental visit in the last 12 months?: Yes Did you have a dental problem in the last 6 months where you did not have access to dental care?: No HPI HPI Comments History of Present Illness Details The patient is a 74-year-old female with A fib on Eliquis, HTN, HLD, GERD, CKD and osteoarthritis of bilateral knees presenting to establish care and to follow up of right knee pain following recent surgery. She had a right total knee was performed on the 8th of the month by Dr. Aragon and she reports that recovery has been challenging due to the pain and the effects of the medication. She is currently taking oxycodone 5 mg, which she finds necessary to manage the pain, especially before physical therapy sessions. She had the left knee replaced a few years ago. She has a follow up with Dr. Aragon on 12/27. The patient has a history of atrial fibrillation for which she is on Eliquis. She also has hypertension managed with metoprolol and amlodipine. Her BP today was 124/72. She has hyperlipidemia managed with atorvastatin. She is scheduled for a mammogram on the 12/25 and has a follow-up with her eye clinic manager on January 28. Her physical therapy is conducted at a facility on [facility], and she reports doing well in therapy despite the challenges posed by medication side effects. Patient was informed and verbally consented to the use of an ambient scribe for clinic note documentation during this visit. [facility] Medical History (Updated 11/27/24 @ 18:58 by GARRY Schuler) Acid reflux High blood pressure High cholesterol Hyperlipidemia Hypertension New onset atrial fibrillation Obesity (BMI 30-39.9) Surgical History (Updated 11/27/24 @ 18:55 by GARRY Schuler) H/O colonoscopy (~04/05/18) History of esophagogastroduodenoscopy (EGD) Hx of left knee surgery Status post total right knee replacement Family History Mother No problems noted. Father No problems noted. 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 1. Little interest or pleasure in doing things: not at all 2. Feeling down, depressed, or hopeless: nearly every day 3. Trouble falling or staying asleep, or sleeping too much: nearly every day (trouble sleeping ) 4. Feeling tired or having little energy: nearly every day 5. Poor appetite or overeating: nearly every day (poor appetite) 6. Feeling bad about yourself - or that you are a failure or have let yourself or your family down: not at all 7. Trouble concentrating on things, such as reading the newspaper or watching television: not at all 8. Moving or speaking so slowly that other people could have noticed. Or the opposite - being so fidgety or restless that you have been moving around a lot more than usual: not at all 9. Thoughts that you would be better off or of hurting yourself in some way: not at all Total score: 12 Depression Screening Interpretation: Positive Depression Screening Follow-up: Follow-up Visit Requested Depression Screening Done: Yes Source: Developed by Drs. Luca Jurado, Gracy Shafer, Panfilo Levy and colleagues, with an educational stef from [employer]. Thrive Questionnaire Date Thrive assessed: 11/27/24 I am a: Patient Within the past 12 months, did the food you bought not last and you didn't have the money to get more?: Never true Within the past 12 months, did you worry whether your food would run out before you got money to buy more?: Never true Do you have trouble paying for medicines?: No Do you have trouble getting transportation to medical appointments?: No Do you have trouble paying your heating and electricity bill?: No Do you have trouble taking care of your child, family member or friend?: No Do you have trouble with day-to-day activities such as bathing, preparing meals, shopping, managing finances, etc.?: No Are you currently unemployed and looking for a job?: No Are you interested in more education?: No THRIVE Score: 0 AUDIT C Alcohol Use Questionnaire (AUDIT-C) 1. How often do you have a drink containing alcohol?: Never 3. How often do you have six or more drinks on one occasion?: Never Total Score: 0 ELIZABETH-7 AMB Questionnaire ELIZABETH-7 Date ELIZABETH - 7 assessed: 11/27/24 Feeling nervous, anxious, or on edge: 1 = Several days Not being able to stop or control worryin = Not at all Worrying too much about different things: 0 = Not at all Trouble relaxin = Not at all Being so restless that it is hard to sit still: 0 = Not at all Becoming easily annoyed or irritable: 0 = Not at all Feeling afraid as if something awful might happen: 0 = Not at all Total ELIZABETH-7 score (0-4 normal; 5-9 mild; 10-14 moderate; 15-21 severe): 1 Source: Developed by Drs. Luca Jurado, Panfilo Pimentel and colleagues, with an educational stef from [employer]. Review of Systems Const Details: CONSTITUTIONAL Negative HEAD/NECK Negative EAR/NOSE/MOUTH/THROAT Negative RESPIRATORY Negative CARDIOVASCULAR Denies chest pain or palpitations GASTROINTESTINAL Reports nausea managed with Zofran MUSCULOSKELETAL Reports right knee pain post-surgery NEUROLOGICAL Negative PSYCHIATRIC Negative Physical exam (Primary Care) Vital Signs: Last Vital Signs Temp 97.1 F 11/27/24 08:35 Pulse 70 11/27/24 08:35 BP 124/72 11/27/24 08:35 Pulse Ox 97 11/27/24 08:35 Oxygen Delivery Method Room Air 11/27/24 08:35 BMI result Body Mass Index 35.2 GENERAL Well developed, obese, in no apparent distress HEENT Head-Normocephalic Eyes- PERRLA, EOMI, Conjuctiva clear, lids WNL Ears- Canals clear, TMs WNL Mouth/Throat-No lesions, no erythema, no exudate Neck- Supple, No lymphadenopathy, thyroid WNL RESPIRATORY Normal I:E, Clear to auscultation CARDIOVASCULAR Regular, rate and rhythm, No murmurs or rubs GASTROINTESTINAL Soft, nontender, normal bowel sounds, no masses MUSCULOSKELETAL Back- nontender right knee-decreased ROM, swelling, tender at joint line NEUROLOGICAL Gait slow with walker PSYCHIATRIC Oriented to person, place and time Mood and affect WNL Appearance WNL Speech WNL Thought processes WNL Tobacco/Smoking Status: Tobacco use Status Tobacco use date assessed 11/27/24 11/27/24 08:36 Patient Tobacco Use Status Former Tobacco user 11/27/24 08:36 e-Cigarette/Vaping Use Former Use 11/27/24 08:36 PHQ-9: PHQ-9 Score PHQ-9: Total score 12 11/27/24 15:05 Depression Screening Interpretation: Positive Depression Screening Follow-up: Follow-up Visit Requested Thrive Assessment: Date of Thrive Assessment Date Thrive assessed 11/27/24 11/27/24 08:36 Coding Level of Care Code Established Pt Est Pt Level 4 (46869) Patient Type Established Diagnoses Status post total right knee replacement Z96.651 Primary hypertension I10 Hypertension type: primary hypertension Paroxysmal atrial fibrillation I48.0 Pure hypercholesterolemia E78.00 Hyperlipidemia type: pure hypercholesterolemia Obesity (BMI 30-39.9) E66.9 Time Spent (min) 30 Comment Time spent on chart review, medication reconciliation, H&P, patient education, orders Assessment & Plan Assessment & Plan (1) Status post total right knee replacement: Code(s): Z96.651 - Presence of right artificial knee joint Category: Surgical Plan: The patient is advised to continue with physical therapy to aid recovery and manage pain with oxycodone as needed, particularly before therapy sessions. Follow-up with the surgeon is scheduled for December to assess progress. (2) Hypertension: Comment: BP today was 124/72 Code(s): I10 - Essential (primary) hypertension Category: Medical Qualifiers: Hypertension type: primary hypertension Qualified Code(s): I10 - Essential (primary) hypertension Plan: The patient is to continue current antihypertensive medications, metoprolol and amlodipine, with regular monitoring of blood pressure. Patient to follow up in 2 months or sooner if symptoms persist or worsen. (3) Paroxysmal atrial fibrillation: Code(s): I48.0 - Paroxysmal atrial fibrillation Category: Medical Plan: The patient is to continue taking Eliquis for anticoagulation and has a follow-up appointment with the eye clinic manager in January. (4) Hyperlipidemia: Code(s): E78.5 - Hyperlipidemia, unspecified Category: Medical Qualifiers: Hyperlipidemia type: pure hypercholesterolemia Qualified Code(s): E78.00 - Pure hypercholesterolemia, unspecified Plan: The patient is to continue atorvastatin for lipid management. Patient to follow up in 2 months or sooner if symptoms persist or worsen. (5) Obesity (BMI 30-39.9): Comment: BMI today was 35.2 Code(s): E66.9 - Obesity, unspecified Category: Medical Plan: Discussed the health risks of obesity with the patient. Reviewed benefits of even moderate weight loss with the patient. We discussed the patient adding more fruits and vegetables to their diet. Will monitor weight and follow up in 2 months. Plan During the visit, we discussed the importance of continuing physical therapy for knee recovery and managing pain with oxycodone as needed. We also reviewed the patient's medication regimen for atrial fibrillation, hypertension, and hyperlipidemia, emphasizing adherence to prescribed therapies. Follow-up appointments with the surgeon and eye clinic manager were confirmed to monitor progress and adjust treatment as necessary. Patient Instructions: - Continue physical therapy as scheduled. - Take oxycodone as needed for pain, especially before therapy sessions. - Adhere to prescribed medications for atrial fibrillation, hypertension, and hyperlipidemia. - Attend follow-up appointments with the surgeon in December and eye clinic manager in January.
--- OUTSIDE RECORDS SUMMARY | 2024-11-27 18:59 | XMS_ITS | Patient Health Record ---
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 Operator Name Role Phone Marcos (RETIRED) Junior VINCENT Primary Care Provide r Luca Valdez Unavailable [phone] Reason For Referral No Information Medications Medication SIG (Take, Route, Frequency, Duration) Notes Start Date End Date Status Vitamin B Complex Ac tive Omeprazole 20 MG Orally Act miguel Fish Oil Active Amlodipine & Diet Manage Prod Active Simvastatin Active Immunizations Vaccine Route Administration Date Status Comme nts Influenza Unknown 01/03/2017 Administered Influenza Unknown 12/03/2017 Administered Problems Problem Type SNOMED Code ICD Code Onset Dates Problem Status W/U Status Risk Notes Problem [id number] Gastro-esophagea l reflux disease without esophagitis (K21.9) Active confirmed Problem [id number] Encounter for screening for malignant neoplasm of colon (Z12.11) Active confirmed Plan Of Treatment Future Test Test Name Order Date COLONOSCOPY 02/05/2018 Insurance Providers Payer Name Payer Address Payer Phone Subscriber Number Group Number Insured Name Patient Relationship to Insured Coverage Start Date Coverage End Date MEDICARE OF [place] [address] [place] [address] [id number] BEENA CUNNINGHAM Self - patient is the insured MED[employer] ATT[employer] CLAIMS [address] [place] [address] [id number] WILLI CUNNINGHAMINE Self - patient is the insured Medical (General) History Medical History History ICD Code GERD-EGD as below Colonoscopy and EGD 06-09-2008 -diverticulosis and internal hemoirrhoids, and small HH, respectively--no esophagitis nor Casanova's hyperlipidemia hypertension Denies TX,DM,CVA,Lung disease,renal dise ase Arthritis-Knees
== END 2024-11-27 15:29 | disposition home or self-care (01) ==
LOC: HO.HMCHD 14:39
PROVIDERS: PCP Internal Medicine; Visit Provider Physician Assistant Medical
DX: I10 Essential (primary) hypertension (principal); I48.0 Paroxysmal atrial fibrillation; E66.9 Obesity, unspecified; Z68.35 Body mass index [BMI] 35.0-35.9, adult; Z96.651 Presence of right artificial knee joint; E78.00 Pure hypercholesterolemia, unspecified

== ENCOUNTER → 2024-11-27 14:39 | Outpatient (BNVA) | payer MEDICARE, SELFPAY | PROVIDERS: PCP Internal Medicine; Visit Provider Physician Assistant Medical | DX: I12.9 Hypertensive chronic kidney disease with stage 1 through stage 4 chronic kidney disease, or unspecified chronic kidney disease (principal); N18.9 Chronic kidney disease, unspecified; I48.0 Paroxysmal atrial fibrillation; E78.00 Pure hypercholesterolemia, unspecified; E66.9 Obesity, unspecified; Z68.35 Body mass index [BMI] 35.0-35.9, adult; Z79.01 Long term (current) use of anticoagulants; Z79.891 Long term (current) use of opiate analgesic; Z79.899 Other long term (current) drug therapy; Z96.651 Presence of right artificial knee joint; Z13.31 Encounter for screening for depression; Z13.39 Encounter for screening examination for other mental health and behavioral disorders | CPT/HCPCS: 96127; 99212 ==

== ENCOUNTER 2024-12-11 10:22 | Outpatient (REF) | payer MEDICARE, SELFPAY ==
--- NOTE | ~2024-12-11 | XR_ITS ---
EXAMINATION: XR ABDOMEN COMPLETE CLINICAL INDICATION: R10.9 - Unspecified abdominal pain COMPARISON: None available. TECHNIQUE: PA view of the chest, and upright and supine views of the abdomen. FINDINGS: The cardiac, hilar, and mediastinal contours are normal. The lungs are clear bilaterally. There is no free air subjacent to the diaphragms. Bowel gas pattern is normal/nonspecific. There is no focally dilated loop, or differential air-fluid level on the upright radiograph. There is a suggestion of small bowel wall thickening on this supine radiograph within the central and left paracentral abdomen. Findings could represent enteritis. There is no organomegaly or large abdominal mass. There is no abnormal soft tissue calcification identified. There is no suspicious bone lesion. There are spinal degenerative changes. XR/XR acute abdomen series IMPRESSION: 1. There is no bowel obstruction or free intraperitoneal air. 2. There is a suggestion of wall thickening of small bowel in the central and left paracentral abdomen. Findings could represent enteritis. CT examination with contrast would be more definitive. 3. The lungs are clear. Electronically signed by: Cesar Joseph MD 12/11/2024 11:40 AM EDT
[2024-12-11 12:06] LABS: Hematocrit 37.0 % (37.0-47.0); Hemoglobin 11.6 g/dl (12.0-16.0); Mean Corpuscular HGB Conc 31.4 g/dl (31.0-35.0); Mean Corpuscular Hemoglobin 28.9 pg (27.0-33.0); Mean Corpuscular Volume 92.3 fL (80.0-98.0); NRBC Abs Auto 0.000 X10*3/uL (0.0-0.012); NRBC Pct Auto 0.0 /100WBC (0.0-0.2); Platelet Count 323 X10*3/uL (160-400); Red Blood Count 4.01 X10*6/uL (4.20-5.50); White Blood Count 7.1 X10*3/uL (4.8-10.8)
== END 2024-12-11 10:23 | disposition home or self-care (01) ==
LOC: HO.XRAY 10:22
PROVIDERS: PCP Physician Assistant Medical; Visit Provider Physician Assistant Medical
DX: R19.5 Other fecal abnormalities (principal); R10.9 Unspecified abdominal pain; R19.7 Diarrhea, unspecified
CPT/HCPCS: 36415; 74022; 85027

== ENCOUNTER 2024-12-11 10:22 | Outpatient (AMB) | payer MEDICARE, SELFPAY ==
[2024-12-11 09:15] VITALS: BP 138/80; PULSE 60; TEMP 36.6; O2SAT 97; BMI 34.0
--- NOTE | 2024-12-11 09:15 | A.OFFPC_ITS ---
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: No Accompanied by: Self / Same As Patient Allergies No Known Allergies Allergy (Unknown, Verified 12/11/24 09:15) Medication List - Last Reconciled 12/15/24 by GARRY Schuler amlodipine 5 mg PO DAILY apixaban (Eliquis) 5 mg PO BID 90 days atorvastatin 20 mg PO DAILY lactulose 20 grams (30 mL) PO BID metoprolol succinate ER 50 mg PO DAILY omeprazole 20 mg PO DAILY Tobacco use date assessed: 12/11/24 Fall risk assessment: No Falls in past year Last assessed Fall Risk: 12/11/24 Dental Screening Dental Screen Date: 12/11/24 Did you have a dental visit in the last 12 months?: Yes Did you have a dental problem in the last 6 months where you did not have access to dental care?: No HPI HPI Comments History of Present Illness Details The patient is a 74-year-old female with A fib on Eliquis, HTN, HLD, GERD, CKD and osteoarthritis of bilateral knees presenting with gastrointestinal symptoms including constipation and diarrhea following cessation of oxycodone. The symptoms began after stopping oxycodone, which was prescribed post-total knee replacement surgery on the 8th of last month. The patient reports a sensation similar to diarrhea, with cramping and dark stools initially, which later changed to a georgi color. The patient experiences fatigue, feeling compelled to push herself to perform daily activities such as cooking. She reports a decreased appetite, forcing herself to eat, and has not felt like herself since the onset of symptoms. The patient has stopped all medications except for those prescribed by her integration assistant, including Eliquis for atrial fibrillation. She denies any history of hemorrhoids and reports self-manipulation to relieve constipation, which resulted in persistent discomfort. The patient reports nausea and has taken anti-nausea medication without relief. Patient was informed and verbally consented to the use of an ambient scribe for clinic note documentation during this visit. [facility] Medical History (Updated 12/11/24 @ 13:24 by GARRY Schuler) Abdominal pain Acid reflux CKD (chronic kidney disease) stage 3, GFR 30-59 ml/min Dark stools Diarrhea High blood pressure High cholesterol Hyperlipidemia Hypertension New onset atrial fibrillation Obesity (BMI 30-39.9) Surgical History H/O colonoscopy (~04/05/18) History of esophagogastroduodenoscopy (EGD) Hx of left knee surgery Status post total right knee replacement Family History Mother No problems noted. Father No problems noted. 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 1. Little interest or pleasure in doing things: not at all 2. Feeling down, depressed, or hopeless: not at all 3. Trouble falling or staying asleep, or sleeping too much: not at all 4. Feeling tired or having little energy: not at all 5. Poor appetite or overeating: not at all 6. Feeling bad about yourself - or that you are a failure or have let yourself or your family down: not at all 7. Trouble concentrating on things, such as reading the newspaper or watching television: not at all 8. Moving or speaking so slowly that other people could have noticed. Or the opposite - being so fidgety or restless that you have been moving around a lot more than usual: not at all 9. Thoughts that you would be better off or of hurting yourself in some way: not at all Total score: 0 Depression Screening Interpretation: Negative Depression Screening Done: Yes Source: Developed by Drs. Luca Jurado, Gracy Shafer, Panfilo Levy and colleagues, with an educational stef from [employer]. Thrive Questionnaire Date Thrive assessed: 12/11/24 I am a: Patient Within the past 12 months, did the food you bought not last and you didn't have the money to get more?: Never true Within the past 12 months, did you worry whether your food would run out before you got money to buy more?: Never true Do you have trouble paying for medicines?: No Do you have trouble getting transportation to medical appointments?: No Do you have trouble paying your heating and electricity bill?: No Do you have trouble taking care of your child, family member or friend?: No Do you have trouble with day-to-day activities such as bathing, preparing meals, shopping, managing finances, etc.?: No Are you currently unemployed and looking for a job?: No Are you interested in more education?: No THRIVE Score: 0 AUDIT C Alcohol Use Questionnaire (AUDIT-C) 1. How often do you have a drink containing alcohol?: Never 3. How often do you have six or more drinks on one occasion?: Never Total Score: 0 ELIZABETH-7 AMB Questionnaire ELIZABETH-7 Date ELIZABETH - 7 assessed: 12/11/24 Feeling nervous, anxious, or on edge: 0 = Not at all Not being able to stop or control worryin = Not at all Worrying too much about different things: 0 = Not at all Trouble relaxin = Not at all Being so restless that it is hard to sit still: 0 = Not at all Becoming easily annoyed or irritable: 0 = Not at all Feeling afraid as if something awful might happen: 0 = Not at all Total ELIZABETH-7 score (0-4 normal; 5-9 mild; 10-14 moderate; 15-21 severe): 0 Source: Developed by Drs. Luca Jurado, Gracy Shafer, Panfilo Levy and colleagues, with an educational stef from [employer]. Review of Systems Const Details: CONSTITUTIONAL No fever 7 lb weight loss Reports fatigue, decreased appetite, nausea. Denies feeling like herself. HEAD/NECK Negative RESPIRATORY Negative CARDIOVASCULAR Negative GASTROINTESTINAL Reports diarrhea, cramping, dark stools initially, now georgi colored. Denies blood or mucus in stool. MUSCULOSKELETAL knee pain NEUROLOGICAL Negative PSYCHIATRIC Negative Physical exam (Primary Care) Vital Signs: Last Vital Signs Temp 97.9 F 12/11/24 09:15 Pulse 60 12/11/24 09:15 BP 138/80 12/11/24 09:15 Pulse Ox 97 12/11/24 09:15 Oxygen Delivery Method Room Air 12/11/24 09:15 BMI result Body Mass Index 34.0 GENERAL Well developed, obese, in no apparent distress HEENT Head-Normocephalic Neck- Supple, No lymphadenopathy, thyroid WNL RESPIRATORY Normal I:E, Clear to auscultation CARDIOVASCULAR Regular, rate and rhythm, No murmurs or rubs GASTROINTESTINAL Soft, nontender, normal bowel sounds, no masses NEUROLOGICAL Gait normal PSYCHIATRIC Oriented to person, place and time Mood and affect WNL Appearance WNL Speech WNL Thought processes WNL Tobacco/Smoking Status: Tobacco use Status Tobacco use date assessed 12/11/24 12/11/24 09:17 Patient Tobacco Use Status Former Tobacco user 12/11/24 09:17 e-Cigarette/Vaping Use Former Use 12/11/24 09:17 PHQ-9: PHQ-9 Score PHQ-9: Total score 0 12/11/24 10:33 Depression Screening Interpretation: Negative Thrive Assessment: Date of Thrive Assessment Date Thrive assessed 12/11/24 12/11/24 09:17 Coding Level of Care Code Established Pt Est Pt Level 3 (46539) Patient Type Established Diagnoses Diarrhea R19.7 Abdominal discomfort R10.9 Time Spent (min) 25 Comment Time spent on H&P, Patient education and orders. Assessment & Plan Assessment & Plan (1) Diarrhea: Code(s): R19.7 - Diarrhea, unspecified Category: Medical Plan: The diarrhea is suspected to be due to overflow from constipation, and the management plan focuses on resolving the constipation. (2) Abdominal discomfort: Code(s): R10.9 - Unspecified abdominal pain Plan: The plan includes performing an abdominal x-ray to assess the amount of stool present and a complete blood count to check for any internal bleeding. The patient is advised to take Metamucil twice daily and increase fluid intake to facilitate bowel movements. If the x-ray indicates significant stool retention, stronger laxatives may be considered. Plan I discussed with the patient that the symptoms are likely due to constipation following the cessation of oxycodone, leading to overflow diarrhea. We plan to perform an abdominal x-ray and blood tests to confirm the diagnosis and rule out other causes. I advised the patient to take Metamucil and increase fluid intake, with the possibility of stronger laxatives if necessary. Follow-up will be arranged based on test results, and the patient will be contacted with the findings. Orders: Orders XR acute abdomen series 12/11/24 R10.9 - Unspecified abdominal pain, R19.7 - Diarrhea, unspecified Complete Blood Count no Diff 12/11/24 R19.5 - Other fecal abnormalities Patient Instructions: - Take Metamucil twice daily, in the morning and at night. - Increase fluid intake to help with bowel movements. - Go to the hospital for an abdominal x-ray and blood work as instructed. - Await a call with test results and further instructions. -Discussed with patient when important to go to the ER
== END 2024-12-11 10:58 | disposition home or self-care (01) ==
LOC: HO.HMCHD 10:23
PROVIDERS: Visit Provider Physician Assistant Medical
DX: R19.7 Diarrhea, unspecified (principal); R10.9 Unspecified abdominal pain

== ENCOUNTER → 2024-12-11 11:08 | Outpatient (BNV) | payer MEDICARE, SELFPAY | PROVIDERS: PCP Physician Assistant Medical; Visit Provider Radiology Diagnostic Radiology | DX: R10.9 Unspecified abdominal pain (principal) | CPT/HCPCS: 74022 ==

== ENCOUNTER 2025-01-28 09:55 | Outpatient (AMB) | payer MEDICARE, SELFPAY ==
[2025-01-28 10:12] VITALS: BP 120/62; PULSE 58; BMI 33.7
--- NOTE | 2025-01-28 10:12 | A.OFFVIS_ITS ---
Vital Signs 01/28/25 10:12 Height 5 ft 4 in Weight 196 lb 3.382 oz BMI 33.7 BP 120/62 Blood Pressure Location Lt brachial Position Sitting Pulse 58 Pulse Source Pulse Oximeter Intake Visit Reasons: 6 mth f/up s/p holter Allergies No Known Allergies Allergy (Unknown, Verified 12/11/24 09:15) Medication List - Last Reconciled 01/28/25 by Stephan Cárdenas MD amlodipine 5 mg PO DAILY apixaban (Eliquis) 5 mg PO BID 90 days atorvastatin 20 mg PO DAILY lactulose 20 grams (30 mL) PO BID metoprolol succinate ER 50 mg PO DAILY omeprazole 20 mg PO DAILY HPI Comments Details: Racheal returns for follow-up. She was initially seen in consultation regarding a question of abnormal stress test that showed ST depression and symptoms of shortness of breath. Then we arranged a a repeat study with nuclear perfusion but when she came for the test, she was in atrial fibrillation. Then underwent cardioversion in 05/2023, after appropriate anticoagulation. She was on flecainide and metoprolol. However, she was having side effects like slowing down and hence saw EP and underwent ablation last month. Over the last few months, she is doing good. No cardiac symptoms whatsoever. [facility] Medical History (Updated 12/11/24 @ 13:24 by GARRY Schuler) CKD (chronic kidney disease) stage 3, GFR 30-59 ml/min Diarrhea Abdominal pain Dark stools Obesity (BMI 30-39.9) Hyperlipidemia Hypertension New onset atrial fibrillation Acid reflux High cholesterol High blood pressure Surgical History Status post total right knee replacement History of esophagogastroduodenoscopy (EGD) H/O colonoscopy (~04/05/18) Hx of left knee surgery Family History Mother No problems noted. Father No problems noted. 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 Cognitive needs: Yes (walker) Hearing needs: No Vision needs: Yes (rx glasses) Review of Systems Const Denies weakness ENT Denies dizziness Card Denies chest pain, Denies chest pain with activity, Denies syncope, Denies rapid heart rate, Denies pedal edema, Denies edema, Denies leg edema, Denies lightheadedness, Denies palpitations, Denies dyspnea, Denies dyspnea on exertion and Denies orthopnea Resp Denies cough, Denies dyspnea and Denies dyspnea on exertion GI Denies hematochezia and Denies change in stool character Musc Denies abnormal gait, Denies muscle cramps, Denies muscle weakness, Denies numbness, Denies radiating pain into limb and Denies tingling Neuro Denies abnormal gait, Denies dizziness, Denies syncope, Denies numbness, Denies tingling and Denies weakness Endo Denies palpitations Physical Exam Vital Signs: Last Vital Signs Pulse 58 01/28/25 10:12 BP 120/62 01/28/25 10:12 BMI result Body Mass Index 33.7 Const General: comfortable and no acute distress Orientation/consciousness: patient oriented x3 HEENT Other: Unremarkable Head: Yes normal to inspection Neck Neck: Yes normal visual inspection Chest Chest palpation & inspection: normal inspection of the chest Resp Auscultation: clear to auscultation bilaterally Cardio Palpation: normal PMI Heart sounds: S1 normal heart sound present, S2 normal heart sound present, no gallops, no murmurs and no rubs GI Palpation (GI): Soft to palpation Back/Spine/Pelvis Other: unremarkable Skin General skin exam: no rashes or lesions noted Neuro General: patient oriented x3 Extrem General: Yes normal to inspection Psych Mental Status: mental status grossly normal Assessment & Plan Assessment & Plan (1) Paroxysmal atrial fibrillation: Code(s): I48.0 - Paroxysmal atrial fibrillation Category: Medical Plan Cardiac studies reviewed. Echocardiogram with LVEF of 60-65%. Moderate diastolic dysfunction and otherwise unremarkable. Myocardial perfusion imaging study was unremarkable. She is status post pulmonary vein and posterior left atrial wall isolation from 06/2024. Remains stable. Continue metoprolol. Off flecainide. Continue Eliquis. Sleep study discussed in the past but not interested. To moderate alcohol intake. Discussion Notes I informed the patient that the atrial fibrillation appears to be well- controlled, as the patient is asymptomatic and has a regular pulse. I stressed the importance of continuing Eliquis for most likely long-term, to reduce the risk of stroke, explaining that it should only be stopped in the event of a significant bleeding issue. We discussed that flecainide is no longer needed. Given the patient's stability, I recommended a follow-up appointment in one year. I provided anticipatory guidance to contact the office if any symptoms of atrial fibrillation recur. Patient was informed and verbally consented to the use of an ambient scribe for clinic note documentation during this visit. Total time spent including review of data, counseling, documentation, coordination of care-31 minutes. Patient Instructions: - Continue to take all your medications as prescribed, including metoprolol, Eliquis (apixaban), and your blood pressure pills. - Do not stop taking Eliquis unless you are told to do so by a doctor, as it helps prevent a stroke. - You have stopped drinking alcohol, which is good. Please continue to avoid it. - Call our office if you have any symptoms of AFib. - Your next follow-up visit with us will be in one year. Coding Level of Care Code Est Pt Level 4 (77634) Complex visit Add On G2211 Diagnoses Paroxysmal atrial fibrillation I48.0
--- OUTSIDE RECORDS SUMMARY | 2025-01-28 11:33 | XMS_ITS | Encounter Summary ---
Author Organization Noemy [facility] Address [address] [place] [address] Care Team Providers Care Revenue Agent Name Role Phone Shannan Hodges MD Primary Care Provider [phone] Encounter Details Date Type Department Care Team (Latest Contact Info) Description 01/13/2025 Lab Requisition [facility] - Main Lab [address] [place] [address] Bo Torres MD [address] [address] Encounter for gynecological examination (general) (routine) without abnormal findings Social History Tobacco Use Types Packs/Day Years Used Date Smoking Tobacco: Never Assessed Comments Unknown Sex and Gender Information Value Date Recorded Sex Assigned at Not on file Legal Sex Female 7:46 AM EST Gender Identity Not on file Sexual Orientation Not on file documented as of this encounter Plan of Treatment Not on file documented as of this encounter Procedures Procedure Name Priority Date/Time Associated Diagnosis Comments PAP SMEAR Routine 01/12/2025 12:00 PM EST Encounter for gynecological examination (general) (routine) without abnormal findings documented in this encounter Results * Pap smear (01/12/2025 12:00 PM EST) Interpretation Negative for intraepithelial lesion or malignancy 01/14/2025 4:02 PM EST [facility] at 1602 EST General Categorization Negative 01/14/2025 4:02 PM [facility] Specimen Adequacy Satisfactory for evaluation, endocervical/spaulding sformation zone component absent 01/14/2025 4:02 PM EST [facility] Pap Methodology Liquid Based Pap Test 01/14/2025 4:02 PM EST [facility] Disclaimer The Pap test is a screening test which carries an inherent false negative rate. These test results should be correlated with the patient's clinical findings and history. This Pap test was processed using an automated screening system. Technical cytopathology services provided by [facility], at [address] [place] [address] (CLIA # [id number]/Rosanne Scanlon MD, Student Life Advisor.) 01/14/2025 4:02 PM EST [facility] Console Pap Interpretation Reported 01/14/2025 4:02 PM [facility] Brushing/Spatula Cervix uteri structure / Unknown 01/12/2025 12:00 PM EST 01/13/2025 7:54 AM EST us Bo Torres MD LAB CYTOLOGY ORDERABLES Final Result [facility]) [facility] [address] [place] [address], documented in this encounter Visit Diagnoses Diagnosis Encounter for gynecological examination (general) (routine) without abnormal findings documented in this encounter Care Teams Revenue Agent Relationship Specialty Start Date End Date Shannan Hodges MD [address] [place] [address] PCP - General Internal Medicine 01/13/25 documented as of this encounter
--- OUTSIDE RECORDS SUMMARY | 2025-01-28 11:33 | XMS_ITS | Clinical Summary ---
Author Organization 299 [facility] Address [address] [place] [address] Phone Care Team Providers Care Remote Sensing Scientist Name Role Phone Shannan Hodges MD Primary Care Provider Encounters Date Type Department Care Team Description 01/13/2025 Lab Requisition [facility] - Main Lab [address] [place] [address] Bo Torres MD Encounter for gynecological examination (general) (routine) without abnormal findings from Last 3 Months Social History Tobacco Use Types Packs/Day Years Used Date Smoking Tobacco: Never Assessed Comments Unknown Sex and Gender Information Value Date Recorded Sex Assigned at Not on file Legal Sex Female 7:46 AM EST Gender Identity Not on file Sexual Orientation Not on file Plan of Treatment Health Maintenance Due Date Last Done Comments Breast Cancer Screening 1950 Colorectal Cancer Screening: Colonoscopy 1950 DTaP,Tdap,and Td Vaccines (1 - Tdap) 1969 Pneumococcal Vaccine: 50+ Ye ars (1 of 1 - PCV) 2000 Zoster Vaccines (1 of 2) 2000 Depression Screening 03/05/2024 COVID-19 Vaccine ( - 2024-2 6 season) 2024 Influenza Vaccine (#1) 2024 Falls Risk Assessment 01/13/2025 Hepatitis C Screening 01/13/2025 Medicare Annual Wellness Visit 01/13/2025 Osteoporosis Screening (Bone Density Screening) 01/13/2025 Social Influencers of Health Screening 01/13/2025 RSV Immunization Adult Patie nts (1 - 1-dose 75+ series) 2025 HIB Vaccines Aged Out No longer eligi ble based on patient's age to complete this topic HPV Vaccines Aged Out No longer eligi ble based on patient's age to complete this topic Hepatitis A Vaccines Aged Out No long er eligible based on patient's age to complete this topic Hepatitis B Vaccines Aged Out No long er eligible based on patient's age to complete this topic IPV Vaccines Aged Out No longer eligi ble based on patient's age to complete this topic MMR Vaccines Aged Out No longer eligi ble based on patient's age to complete this topic Meningococcal ACWY Vaccine Aged Out N o longer eligible based on patient's age to complete this topic Meningococcal B Vaccine Aged Out No l onger eligible based on patient's age to complete this topic RSV Immunization Patients Un montse 20 months Aged Out No longer eligible b ased on patient's age to complete this topic Varicella Vaccines Aged Out No longer eligible based on patient's age to complete this topic Procedures Procedure Name Priority Date/Time Associated Diagnosis Comments PAP SMEAR Routine 01/12/2025 12:00 PM EST Encounter for gynecological examination (general) (routine) without abnormal findings from Last 3 Months Results * Pap smear (01/12/2025 12:00 PM EST) Interpretation Negative for intraepithelial lesion or malignancy 01/14/2025 4:[address] [facility] at 1602 EST General Categorization Negative 01/14/2025 4:[address] [facility] Specimen Adequacy Satisfactory for evaluation, endocervical/spaulding sformation zone component absent 01/14/2025 4:[address] [facility] Pap Methodology Liquid Based Pap Test 01/14/2025 4:[address] [facility] Disclaimer The Pap test is a screening test which carries an inherent false negative rate. These test results should be correlated with the patient's clinical findings and history. This Pap test was processed using an automated screening system. Technical cytopathology services provided by [facility], at [address] [place] [address], [place] [address] (CLIA # [id number]/Rosanne Scanlon MD, Seed Sales Manager.) 01/14/2025 4:02 PM EST [facility] Console Pap Interpretation Reported 01/14/2025 4:02 PM EST [facility] Brushing/Spatula Cervix uteri structure / Unknown 01/12/2025 12:00 PM EST 01/13/2025 7:54 AM EST us Bo Torres MD LAB CYTOLOGY ORDERABLES Final Result [facility] [address] [place] [address], from Last 3 Months Insurance [employer] [employer] [place] MEDIC[place]ANTAGE Care Teams Remote Sensing Scientist Relationship Specialty Start Date End Date Shannan Hodges MD [address] [place] [address] PCP - General Internal Medicine 01/13/25
== END 2025-01-28 10:29 | disposition home or self-care (01) ==
LOC: HO.HCS 09:55
PROVIDERS: PCP Internal Medicine; Visit Provider Internal Medicine
DX: I48.0 Paroxysmal atrial fibrillation (principal)
CPT/HCPCS: 99214; G2211

== ENCOUNTER 2025-01-28 10:49 | Outpatient (REF) | payer MEDICARE, SELFPAY ==
--- NOTE | ~2025-01-28 | MM_ITS ---
EXAMINATION: MM SCREENING DIGITAL BREAST TOMOSYNTHESIS, BILATERAL CLINICAL INFORMATION: Screening. Asymptomatic. COMPARISON: Comparison made to multiple prior, most recent December 20, 2023, and most remote July 27, 2017. TECHNIQUE: Digital breast tomosynthesis is performed in mediolateral oblique and craniocaudal views along with computer-aided detection (CAD). Synthesized 2D images are generated from the tomosynthesis. FINDINGS: BREAST COMPOSITION: There are scattered areas of fibroglandular density. RIGHT BREAST: No significant masses, suspicious calcifications or other abnormalities are seen. LEFT BREAST: Focal asymmetry in the lateral breast at approximately 3:00 position posterior depth about 15-16 cm from the nipple and measuring about 3.5-4.0 cm long (MLO 24/80, CC 19/). No suspicious calcifications are seen. MM/MM tomosynthesis screening BI IMPRESSION: RIGHT BREAST: Negative, no mammographic evidence of malignancy. Normal interval follow-up is recommended in 12 months. LEFT BREAST: Focal asymmetry in the lateral breast at approximately 3 o'clock position posterior depth. ASSESSMENT: BI-RADS: Category 0: Incomplete - Need additional Imaging Evaluation RECOMMENDATION: 1. Additional views of the left breast 2. Targeted ultrasound if warranted after review of the additional views. 3. Radiology department staff will contact the patient for additional imaging. FOLLOW-UP: Additional Imaging required This examination should not preclude the clinical evaluation of a suspicious palpable abnormality. This patient's information was entered into a reminder system with a target due date for their next mammogram. Electronically signed by: Rachana Ellis MD 01/30/2025 05:03 PM [facility]
== END 2025-01-28 10:50 | disposition home or self-care (01) ==
LOC: HO.MAMMO 10:49
PROVIDERS: PCP Physician Assistant Medical; Visit Provider Physician Assistant
DX: Z12.31 Encounter for screening mammogram for malignant neoplasm of breast (principal); I48.0 Paroxysmal atrial fibrillation
CPT/HCPCS: 77063; 77067; 99212

== ENCOUNTER → 2025-01-28 11:00 | Outpatient (BNV) | payer MEDICARE, SELFPAY | PROVIDERS: PCP Physician Assistant Medical; Visit Provider Radiology Body Imaging | DX: Z12.31 Encounter for screening mammogram for malignant neoplasm of breast (principal) | CPT/HCPCS: 77063; 77067 ==

== ENCOUNTER 2025-02-06 07:44 | Outpatient (REF) | payer MEDICARE, SELFPAY ==
--- NOTE | ~2025-02-06 | MM_ITS ---
EXAMINATION: MM DIAGNOSTIC DIGITAL BREAST TOMOSYNTHESIS, LEFT Limited ultrasound. CLINICAL INFORMATION: Call back from screening for focal asymmetry in the upper outer left breast posterior depth with associated architectural distortion. COMPARISON: Mammography: Priors on PACS. TECHNIQUE: Digital breast tomosynthesis is performed in both the craniocaudal and mediolateral oblique views along with computer-aided detection (CAD). Synthesized 2D images are generated from the tomosynthesis. FINDINGS: There are scattered areas of fibroglandular density. Focal asymmetry in the upper outer left breast far posterior depth with associated architectural distortion persists on additional imaging projections. No suspicious calcifications or other abnormal findings. Targeted color Doppler ultrasound scanning in the upper outer quadrant demonstrates ill-defined areas of fibrocystic changes at 3:00 12 cm from the nipple is an area that could represent the focal asymmetry with distortion seen better on mammography. Otherwise there is normal fibronodular glandular breast tissue. MM/MM tomosynthesis added views L IMPRESSION: Focal asymmetry in the upper outer left breast posterior depth with associated distortion and with ill-defined fibroglandular tissue with subtle shadowing on ultrasound. Recommend stereotactic core needle biopsy at this time for confirmation. The findings and recommendations were discussed with the patient the procedure will be scheduled. ASSESSMENT: BI-RADS Category 4: Suspicious RECOMMENDATION: Biopsy recommended Results were provided to the patient at time of visit by the technologist. Electronically signed by: Palak Monzon DO 02/06/2025 09:30 AM [facility]
--- OUTSIDE RECORDS SUMMARY | 2025-02-06 07:46 | XMS_ITS | Encounter Summary ---
Author Organization Noemy [facility] Address [address] [place] [address] Care Team Providers Care Ends Breakage Clerk Name Role Phone Shannan Hodges MD Primary Care Provider Encounter Details Date Type Department Care Team (Latest Contact Info) Description 01/13/2025 Lab Requisition [facility] - Main Lab [address] [place] [address] Bo Torres MD [address] [address] Encounter for gynecological examination (general) [...] lesion or malignancy 01/14/2025 4:02 PM EST [facility] at 1602 EST General Categorization Negative 01/14/2025 4:02 PM [facility] Specimen Adequacy Satisfactory for evaluation, endocervical/spaulding sformation zone component absent 01/14/2025 4:02 PM EST [facility] Pap Methodology Liquid Based Pap Test 01/14/2025 4:02 PM EST [facility] Disclaimer The Pap test is a screening test which carries an inherent false negative rate. These test results should be correlated with the patient's clinical findings and history. This Pap test was processed using an automated screening system. Technical cytopathology services provided by [facility], at [address] [place] [address] (CLIA # [id number]/Rosanne Scanlon MD, Fruit And Vegetable Classer.) 01/14/2025 4:02 PM EST [facility] Console Pap Interpretation Reported 01/14/2025 4:02 PM [facility] Brushing/Spatula Cervix uteri structure / Unknown 01/12/2025 12:00 PM EST 01/13/2025 7:54 AM EST us Bo Torres MD LAB CYTOLOGY ORDERABLES Final Result [facility]) [facility] [address] [place] [address], documented in this encounter Visit Diagnoses Diagnosis Encounter for gynecological examination (general) (routine) without abnormal findings documented in this encounter Care Teams Ends Breakage Clerk Relationship Specialty Start Date End Date Shannan Hodges MD [address] [place] [address] PCP - General Internal Medicine 01/13/25 documented as of this encounter
--- OUTSIDE RECORDS SUMMARY | 2025-02-06 07:47 | XMS_ITS | Patient Health Record ---
Author Organization [facility] Address [address] [place] [address] Care Team Providers Care Cash Management Specialist Name Role Phone Marcos (RETIRED) Junior VINCENT Primary Care Provide r Unavailable Luca Garcia Unavailable [phone] Reason For Referral No Information Medications Medication SIG (Take, Route, Frequency, Duration) Notes Start Date End Date Status Vitamin B Complex Ac tive Omeprazole 20 MG Capsule Delayed Release Orally Active Fish Oil Active Amlodipine & Diet Manage Prod Active Simvastatin Active Immunizations Vaccine Route Administration Date Status Comme nts Influenza Unknown 01/03/2017 Administered Influenza Unknown 12/03/2017 Administered Social History Social History Additional Details Category Social Info Options Details Miscellaneous: Marital status: 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 Caffeine: 1-2 cups per day Section Notes: Nonsmoker; 1-2 glasses of wi ne QD Nonsmoker; 1-2 glasses of wi ne QD Nonsmoker; 1-2 glasses of wi ne QD Nonsmoker; 1-2 glasses of wi ne QD Problems Problem Type SNOMED Code ICD Code Onset Dates Problem Status W/U Status Risk Notes Problem Gastro-esophagea l reflux disease without esophagitis (917363121) Gastro-esophage al reflux disease without esophagitis (K21.9) Active confirmed Problem Screening for malignant neoplasm of colon (474192044) Encounter for screening for malignant neoplasm of colon (Z12.11) Active confirmed Plan Of Treatment Future Test Test Name Order Date COLONOSCOPY 02/05/2018 Insurance Providers Payer Name Payer Address Payer Phone Subscriber Number Group Number Insured Name Patient Relationship to Insured Coverage Start Date Coverage End Date MEDICARE OF [place] [address] [place] [address] [phone] [id number] BEENA CUNNINGHAM Self - patient is the insured MEDEX ATTN CLAIMS [address] [place] [address] [id number] BEENA CUNNINGHAM Self - patient is the insured Medical (General) History Medical History History ICD Code GERD-EGD as below Colonoscopy and EGD 06-09-2008 -diverticulosis and internal hemoirrhoids, and small HH, respectively--no esophagitis nor Casanova's hyperlipidemia hypertension Denies TX,DM,CVA,Lung disease,renal dise ase Arthritis-Knees
--- OUTSIDE RECORDS SUMMARY | 2025-02-06 07:47 | XMS_ITS | Clinical Summary ---
Author Organization 299 [facility] Address [address] [place] [address] Phone Care Team Providers Care Culvert Installer Name Role Phone Shannan Hodges MD Primary Care Provider [phone] Encounters Date Type Department Care Team Description 01/13/2025 Lab Requisition [facility] - Main Lab [address] [place] [address] Bo Torres MD Encounter for [...] intraepithelial lesion or malignancy 01/14/2025 4:02 PM [facility] at 1602 EST General Categorization Negative 01/14/2025 4:02 PM [facility] Specimen Adequacy Satisfactory for evaluation, endocervical/spaulding sformation zone component absent 01/14/2025 4:02 PM [facility] Pap Methodology Liquid Based Pap Test 01/14/2025 4:02 PM [facility] Disclaimer The Pap test is a screening test which carries an inherent false negative rate. These test results should be correlated with the patient's clinical findings and history. This Pap test was processed using an automated screening system. Technical cytopathology services provided by [facility], at [address] [place] [address], [place] [address] (CLIA # [id number]/Rosanne Scanlon MD, Mental Measurements Teacher.) 01/14/2025 4:02 PM EST [facility] Console Pap Interpretation Reported 01/14/2025 4:02 PM EST [facility] Brushing/Spatula Cervix uteri structure / Unknown 01/12/2025 12:00 PM EST 01/13/2025 7:54 AM EST us Bo Torres MD LAB CYTOLOGY ORDERABLES Final [facility] [address] [place] [address], from Last 3 Months Insurance [employer] [place]IC[place] Care Teams Culvert Installer Relationship Specialty Start Date End Date Shannan Hodges MD [address] [place] [address] PCP - General Internal Medicine 01/13/25
== END 2025-02-06 07:45 | disposition home or self-care (01) ==
LOC: HO.MAMMO 07:44
PROVIDERS: PCP Physician Assistant; Visit Provider Physician Assistant Medical
DX: N64.89 Other specified disorders of breast (principal)
CPT/HCPCS: 76642; 77061; 77065

== ENCOUNTER → 2025-02-06 09:00 | Outpatient (BNV) | payer MEDICARE, SELFPAY | PROVIDERS: PCP Physician Assistant; Visit Provider Internal Medicine | DX: R92.8 Other abnormal and inconclusive findings on diagnostic imaging of breast (principal) | CPT/HCPCS: 76642; 77065; G0279 ==

== ENCOUNTER 2025-02-19 10:33 | Outpatient (AMB) | payer MEDICARE, SELFPAY ==
--- NOTE | 2025-02-19 10:43 | A.OFFPC_ITS ---
Vital Signs 02/19/25 10:44 Height 5 ft 4 in Weight 200 lb BMI 34.3 BP 130/80 Blood Pressure Location Rt brachial Position Sitting Pulse 65 Pulse Source Pulse Oximeter Temp 97.5 F Temp Source Temporal Artery Scan Pulse Oximetry (%) 99 Oxygen Delivery Method Room Air Intake Visit Reasons: 3 months follow up Curtain Cleaner Required: No Accompanied by: Self / Same As Patient Allergies No Known Allergies Allergy (Unknown, Verified 02/19/25 10:44) Medication List - Last Reconciled 02/22/25 by GARRY Schuler amlodipine 5 mg PO DAILY apixaban (Eliquis) 5 mg PO BID 90 days atorvastatin 20 mg PO DAILY lactulose 20 grams (30 mL) PO BID metoprolol succinate ER 50 mg PO DAILY omeprazole 20 mg PO DAILY Tobacco use date assessed: 02/19/25 Fall risk assessment: No Falls in past year Last assessed Fall Risk: 02/19/25 Dental Screening Dental Screen Date: 02/19/25 Did you have a dental visit in the last 12 months?: Yes Did you have a dental problem in the last 6 months where you did not have access to dental care?: No HPI HPI Comments History of Present Illness Details History of Present Illness The patient is a 74 year old female with A fib on Eliquis, HTN, HLD, GERD, CKD and osteoarthritis of bilateral knees presenting for a follow-up visit for chronic condition management and to discuss an upcoming breast biopsy. The patient reports her stomach is doing better following a recent episode of severe constipation, which she notes has happened before but was worse this time. A medication prescribed previously was effective, and she now has regular daily bowel movements. She experienced poor appetite and lost 8 pounds during that time, but is now eating again and regaining the weight. Regarding her musculoskeletal health, she has completed physical therapy for her knees and feels they are getting better every day. She reports that her activity level is somewhat limited by winter conditions and a fear of falling. The patient is scheduled for a breast biopsy next week for an abnormal finding. She has a history of dense breasts, which can make imaging difficult to interpret, and underwent a biopsy a long time ago in a similar location which w as benign. She believes the current finding could be scar tissue from the previous procedure. The patient is on Eliquis for atrial fibrillation. Medical History: - Atrial fibrillation - Dense breast tissue - History of constipation, noted to be e xacerbated by pain medications Surgical History: - Recent knee surgery (status post physi kapil therapy) - History of breast biopsy Medications: - Eliquis for atrial fibrillation Health Maintenance The patient will follow up in two months. An order for lab work was placed, and she was instructed to have it done one week before her next appointment. Social History - Diet: Reports her appetite is returnin g after a period of poor intake related to GI issues, during which she lost eight pounds. - Exercise: Reports she is active at [facility] but finds it difficult to exercise outdoors in the winter. - Functional Status: Reports she is nancy vering from a recent surgery and feels her legs are getting stronger daily. Patient was informed and verbally consented to the use of an ambient scribe for clinic note documentation during this visit. Patient was informed and verbally consented to the use of an ambient scribe for clinic note documentation during this visit. [facility] Medical History CKD (chronic kidney disease) stage 3, GFR 30-59 ml/min Diarrhea Abdominal pain Dark stools Obesity (BMI 30-39.9) Hyperlipidemia Hypertension New onset atrial fibrillation Acid reflux High cholesterol High blood pressure Surgical History Status post total right knee replacement History of esophagogastroduodenoscopy (EGD) H/O colonoscopy (~04/05/18) Hx of left knee surgery Family History (Updated 02/19/25 @ 10:45 by Antonia Bertrand MA) Mother No problems noted. Father No problems noted. 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 Luca Jurado, Gracy Shafer, Panfilo Levy and colleagues, with an educational tsef from [employer]. Review of Systems Narrative Review of Systems - Constitutional: Reports feeling better, though she had recent weight loss of 8 pounds, which she is now regaining. - Gastrointestinal: Denies current stomach problems; reports resolution of constipation with regular daily bowel movements. - Musculoskeletal: Reports her knees are doing well and legs feel stronger after completing physical therapy. - Breast: Reports an upcoming biopsy for an abnormal finding. Physical exam (Primary Care) Vital Signs: Last Vital Signs Temp 97.5 F 02/19/25 10:44 Pulse 65 02/19/25 10:44 BP 130/80 02/19/25 10:44 Pulse Ox 99 02/19/25 10:44 Oxygen Delivery Method Room Air 02/19/25 10:44 BMI result Body Mass Index 34.3 GENERAL Well developed, obese, in no apparent distress HEENT Head-Normocephalic Neck- Supple, No lymphadenopathy, thyroid WNL RESPIRATORY Normal I:E, Clear to auscultation CARDIOVASCULAR Regular, rate and rhythm, No murmurs or rubs GASTROINTESTINAL Soft, nontender, normal bowel sounds, no masses MUSCULOSKELETAL Joints- no swelling or deformity NEUROLOGICAL Gait normal PSYCHIATRIC Oriented to person, place and time Mood and affect WNL Appearance WNL Speech WNL Thought processes WNL Tobacco/Smoking Status: Tobacco use Status Tobacco use date assessed 02/19/25 02/19/25 10:47 Patient Tobacco Use Status Former Tobacco user 02/19/25 10:44 e-Cigarette/Vaping Use Former Use 02/19/25 10:44 Thrive Assessment: Date of Thrive Assessment Date Thrive assessed 11/27/24 02/19/25 10:44 Narrative Physical Exam - Cardiovascular: Regular heart rhythm noted on auscultation. - Pulmonary: Lungs are clear to auscultation bilaterally. Coding Level of Care Code Established Pt Est Pt Level 4 (08260) Established Pt Add On Problem Visit Only Patient Type Established Diagnoses Primary hypertension I10 Hypertension type: primary hypertension Paroxysmal atrial fibrillation I48.0 Abnormal mammogram R92.8 Time Spent (min) 30 Comment Time spent on chart review, H&P, Patient education and orders. Assessment & Plan Assessment & Plan (1) Hypertension: Comment: BP today was 134/82 Code(s): I10 - Essential (primary) hypertension Category: Medical Qualifiers: Hypertension type: primary hypertension Qualified Code(s): I10 - Essential (primary) hypertension (2) Paroxysmal atrial fibrillation: Code(s): I48.0 - Paroxysmal atrial fibrillation Category: Medical (3) Abnormal mammogram: Code(s): R92.8 - Other abnormal and inconclusive findings on diagnostic imaging of breast Plan Plan Patient was informed and verbally consented to the use of an ambient scribe for clinic note documentation during this visit. 1. Abnormal Finding On Breast Imaging The patient has an upcoming breast biopsy scheduled for next Sunday due to an imaging finding. Given her history of dense breasts and a prior benign biopsy in a similar location, this may represent scar tissue or benign calcifications. She was advised to stop her Eliquis on Sunday, three days prior to the procedure, and restart it on Sunday after the biopsy is complete. The patient also has a preoperative appointment with a surgeon to see prior to the biopsy. Biopsy results will be monitored. 2. Atrial Fibrillation The patient has a history of atrial fibrillation managed with Eliquis. The risks and benefits of temporarily holding her anticoagulant for the upcoming biopsy were discussed, with the conclusion that the bleeding risk from the procedure outweighs the short-term thrombotic risk. Medication refills will be sent to the pharmacy. Discussion Notes I discussed the patient's upcoming breast biopsy, reassuring her that while caution is necessary, many such findings in patients with dense breasts and a history of prior benign biopsies returned goods sorter to be non-malignant, such as scar tissue or calcifications. We reviewed the plan for her anticoagulation, and I explained the rationale for stopping Eliquis three days prior to the procedure is to minimize bleeding risk, as this is a greater concern than the short-term risk of a clot. I clarified the timing, instructing her to stop the medication o n Sunday for the Sunday biopsy and to restart it on the same day after the procedure. I informed her that I will be notified of the biopsy results. I also reassured her that feeling anxious or forgetful after receiving such news is a normal response. A plan was made for a follow-up visit in two months, with lab work to be completed one week prior. Patient Instructions - For your breast biopsy scheduled for Sunday, please stop taking your Eliquis on Sunday. - You should restart your Eliquis on Sunday after the biopsy is finished. - Remember to contact your surgeon's office, as you have an appointment with them before your biopsy. - Please stop at the front office associate to schedule a follow-up appointment in two months. - An order has been placed for blood work. Please have this done one week before your next appointment. - Your medication refills have been sent to your pharmacy. Orders: Orders Complete Blood Count no Diff 02/19/25 I10 - Essential (primary) hypertension TSH reflex Free T4 02/19/25 I10 - Essential (primary) hypertension Comprehensive Met. Panel 02/19/25 I10 - Essential (primary) hypertension
[2025-02-19 10:44] VITALS: BP 130/80; PULSE 65; TEMP 36.4; O2SAT 99; BMI 34.3
--- OUTSIDE RECORDS SUMMARY | 2025-02-19 13:17 | XMS_ITS | Clinical Summary ---
Author Organization [facility] Address [address] [place] [address] Phone Care Team Providers Care Manager Case Management Name Role Phone Shannan Hodges MD Primary Care Provider Encounters Date Type Department Care Team Description 01/13/2025 Lab Requisition [facility] - Main Lab [address] [place] [address] Bo Torres MD Encounter for [...] intraepithelial lesion or malignancy 01/14/2025 4:02 PM [facility] at 1602 EST General Categorization Negative 01/14/2025 4:02 PM [facility] Specimen Adequacy Satisfactory for evaluation, endocervical/spaulding sformation zone component absent 01/14/2025 4:02 PM [facility] Pap Methodology Liquid Based Pap Test 01/14/2025 4:02 PM [facility] Disclaimer The Pap test is a screening test which carries an inherent false negative rate. These test results should be correlated with the patient's clinical findings and history. This Pap test was processed using an automated screening system. Technical cytopathology services provided by [facility], at [address] [place] [address], [place] [address] (CLIA # [id number]/Rosanne Scanlon MD, Dowel Pointer.) 01/14/2025 4:02 PM EST [facility] Console Pap Interpretation Reported 01/14/2025 4:02 PM EST [facility]) [facility] Brushing/Spatula Cervix uteri structure / Unknown 01/12/2025 12:00 PM EST 01/13/2025 7:54 AM EST us Bo Torres MD LAB CYTOLOGY ORDERABLES Final Result [facility] [address] [place] [address], from Last 3 Months Insurance BLUE [employer] - [place] MEDICARE ADVANTAGE Care Teams Manager Case Management Relationship Specialty Start Date End Date Shannan Hodges MD [address] [place] [address] PCP - General Internal Medicine 01/13/25
--- OUTSIDE RECORDS SUMMARY | 2025-02-19 13:17 | XMS_ITS | Patient Health Record ---
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 Caffeine: 1-2 cups per day Section Notes: Nonsmoker; 1-2 glasses of wi ne QD Nonsmoker; 1-2 glasses of wi ne QD Nonsmoker; 1-2 glasses of wi ne QD Nonsmoker; 1-2 glasses of wi ne QD Problems Problem Type SNOMED Code ICD Code Onset Dates Problem Status W/U Status Risk Notes Problem Gastro-esophagea l reflux disease without esophagitis (497909412) Gastro-esophage al reflux disease without esophagitis (K21.9) Active confirmed Problem Screening for malignant neoplasm of colon (048054992) Encounter for screening for malignant neoplasm of colon (Z12.11) Active confirmed Plan Of Treatment Future Test Test Name Order Date COLONOSCOPY 02/05/2018 Insurance Providers Payer Name Payer Address Payer Phone Subscriber Number Group Number Insured Name Patient Relationship to Insured Coverage Start Date Coverage End Date MEDICARE OF [place] [address] [place] [address] [id number] BEENA CUNNINGHAM Self - patient is the insured MEDEX ATTN CLAIMS [address] [place] [address] [id number] BEENA CUNNINGHAM Self - patient is the insured Medical (General) History Medical History History ICD Code GERD-EGD as below Colonoscopy and EGD 06-09-2008 -diverticulosis and internal hemoirrhoids, and small HH, respectively--no esophagitis nor Casanova's hyperlipidemia hypertension Denies [place],DM,CVA,Lung disease,renal dise ase Arthritis-Knees
--- OUTSIDE RECORDS SUMMARY | 2025-02-19 13:17 | XMS_ITS | Encounter Summary ---
Author Organization [facility] Address [address] [place] [address] Care Team Providers Care Curb Builder Name Role Phone Shannan Hodges MD Primary Care Provider Encounter Details Date Type Department Care Team (Latest Contact Info) Description 01/13/2025 Lab Requisition [facility] - Main Lab [address] [place] [address] Bo Torres MD [address] [address] Encounter for gynecological examination (general) [...] lesion or malignancy 01/14/2025 4:02 PM EST [facility] at 1602 EST General Categorization Negative 01/14/2025 4:02 PM [facility] Specimen Adequacy Satisfactory for evaluation, endocervical/spaulding sformation zone component absent 01/14/2025 4:02 PM EST [facility] Pap Methodology Liquid Based Pap Test 01/14/2025 4:02 PM EST [facility] Disclaimer The Pap test is a screening test which carries an inherent false negative rate. These test results should be correlated with the patient's clinical findings and history. This Pap test was processed using an automated screening system. Technical cytopathology services provided by [facility], at [address] [place] [address] (CLIA # [id number]/Rosanne Scanlon MD, Assistant Child Care Teacher.) 01/14/2025 4:02 PM EST [facility] Console Pap Interpretation Reported 01/14/2025 4:02 PM [facility] Brushing/Spatula Cervix uteri structure / Unknown 01/12/2025 12:00 PM EST 01/13/2025 7:54 AM EST us Bo Torres MD LAB CYTOLOGY ORDERABLES Final Result [facility] [address] [place] [address], documented in this encounter Visit Diagnoses Diagnosis Encounter for gynecological examination (general) (routine) without abnormal findings documented in this encounter Care Teams Curb Builder Relationship Specialty Start Date End Date Shannan Hodges MD [address] [place] [address] PCP - General Internal Medicine 01/13/25 documented as of this encounter
== END 2025-02-19 11:17 | disposition home or self-care (01) ==
LOC: HO.HMCHD 10:34
PROVIDERS: PCP Physician Assistant Medical; Visit Provider Physician Assistant Medical
DX: I10 Essential (primary) hypertension (principal); I48.0 Paroxysmal atrial fibrillation; R92.8 Other abnormal and inconclusive findings on diagnostic imaging of breast

== ENCOUNTER 2025-02-23 08:03 | Outpatient (AMB) | payer MEDICARE, SELFPAY ==
[2025-02-23 08:07] VITALS: BP 143/65; PULSE 70; BMI 34.7
--- NOTE | 2025-02-23 08:07 | MHC.OFFVIS ---
Vital Signs 02/23/25 08:07 Height 5 ft 4 in Weight 202 lb BMI 34.7 BP 143/65 H Blood Pressure Location Rt radial Position Sitting Pulse 70 Intake Visit Reasons: L brst stero BX upper out quad distortation Intake Note: Patient is seen in office for stereo biopsy CONSULT left breast for distortion upper outer quadrant. Pt c/o: does not feel lumps or bumps. Reports hx of dense breasts. Mother hx of breast CA diagnosed in late 70's. Denies pain, tenderness, nipple discharge. Bx at 9am Television Production Technician Required: No Accompanied by: Self / Same As Patient Allergies No Known Allergies Allergy (Unknown, Verified 02/23/25 08:13) Medication List - Last Reconciled 02/23/25 by Maco Kuhn MD amlodipine 5 mg PO DAILY apixaban (Eliquis) 5 mg PO BID 90 days atorvastatin 20 mg PO DAILY lactulose 20 grams (30 mL) PO BID metoprolol succinate ER 50 mg PO DAILY omeprazole 20 mg PO DAILY HPI Comments Details: 74-year-old female patient presenting for an initial evaluation prior to a left breast stereotactic guided core biopsy later today. It was noted on screening mammogram to have a focal asymmetry in the upper outer quadrant of the left breast posterior depth on 01/28/2025. She was brought back on 02/06/2025 for a diagnostic mammogram and ultrasound which confirmed the focal asymmetry in the upper outer quadrant which was felt to be suspicious for malignancy. Stereotactic guided core biopsy was recommended. She reports a prior history of a left breast biopsy many years ago was uncertain of the pathology. She is with 2 adult children and 1 miscarriage. Menarche was at 15 in her 1st child was born when she was 18. Family history is significant for her mother having breast cancer in her late 70s. Her sister had ovarian cancer as well as an aneurysm. Her sister is alive and well. She is uncertain if either her mother or sister underwent genetic testing. She denies any ongoing breast symptoms of pain, redness, discharge or palpable masses. [facility] Medical History CKD (chronic kidney disease) stage 3, GFR 30-59 ml/min Diarrhea Abdominal pain Dark stools Obesity (BMI 30-39.9) Hyperlipidemia Hypertension New onset atrial fibrillation Acid reflux High cholesterol High blood pressure Surgical History Status post total right knee replacement History of esophagogastroduodenoscopy (EGD) H/O colonoscopy (~04/05/18) Hx of left knee surgery Family History Mother No problems noted. Father No problems noted. 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 Cognitive needs: Yes (walker) Hearing needs: No Vision needs: Yes (rx glasses) Review of Systems Const All systems reviewed & are unremarkable except as noted in HPI and below Physical Exam Vital Signs: Last Vital Signs Pulse 70 02/23/25 08:07 BP 143/65 H 02/23/25 08:07 BMI result Body Mass Index 34.7 Const General: cooperative and no acute distress Nutritional Appearance: well nourished Orientation/consciousness: patient oriented x3 Limitations: no limitations HEENT Head: Yes normocephalic and Yes atraumatic Ears: hearing grossly normal bilaterally Chest Other: Left breast: No skin change, no nipple retraction, no nipple discharge, no palpable mass, no enlarged lymph nodes. Right breast: No skin change, no nipple retraction, no nipple discharge, no palpable mass, no enlarged lymph nodes Resp Effort & Inspection: normal respiratory effort, no audible wheezes, no cough and no respiratory distress Cardio Jugular venous distension: no JVD GI Inspection: Yes normal to inspection Skin Other: Warm, dry, no rash Neuro Other: Mobility Assessment: 1. 3 meter assessment time (seconds): 5 2. Gait observations: Normal balance and gait General: patient oriented x3 Extrem General: Yes no clubbing, cyanosis or edema Assessment & Plan Assessment & Plan (1) Abnormal mammogram of left breast: Code(s): R92.8 - Other abnormal and inconclusive findings on diagnostic imaging of breast Category: Medical (2) Family history of breast cancer: Code(s): Z80.3 - Family history of malignant neoplasm of breast Category: Medical (3) Family history of ovarian cancer: Code(s): Z80.41 - Family history of malignant neoplasm of ovary Category: Medical Plan 74-year-old female patient found on a recent mammogram to have a focal area of asymmetry in the upper outer quadrant posterior depth of the left breast with the associated distortion and ill-defined fibroglandular tissue (BI-RADS 4) on 02/06/2025. She is scheduled for a stereotactic guided core biopsy later today at the [facility] (02/23/2025). I reviewed the mammogram with the patient and explained the procedure in detail. Examination today revealed no suspicious findings in either breast and no enlarged lymph nodes. She will return approximately 1 week to review the pathology results and discuss treatment options. She expressed understanding and agrees with the plan. Coding Level of Care Code New Pt Level 4 (17640) Diagnoses Abnormal mammogram of left breast R92.8 Family history of breast cancer Z80.3 Family history of ovarian cancer Z80.41
--- OUTSIDE RECORDS SUMMARY | 2025-02-23 08:08 | XMS_ITS | Clinical Summary ---
Author Organization [facility] Address [address] [place] [address] Phone Care Team Providers Care Geophysical Data Technician Name Role Phone Shannan Hodges MD Primary Care Provider [phone] Encounters Date Type Department Care Team Description 01/13/[address] [facility] - Main Lab [address] [place] [address] Bo Torres MD Encounter for [...] intraepithelial lesion or malignancy 01/14/2025 4:02 PM [facility] at 1602 EST General Categorization Negative 01/14/2025 4:02 PM [facility] Specimen Adequacy Satisfactory for evaluation, endocervical/spaulding sformation zone component absent 01/14/2025 4:02 PM [facility] Pap Methodology Liquid Based Pap Test 01/14/2025 4:02 PM [facility] Disclaimer The Pap test is a screening test which carries an inherent false negative rate. These test results should be correlated with the patient's clinical findings and history. This Pap test was processed using an automated screening system. Technical cytopathology services provided by [facility], at [address] [place] [address], [place] [address] (CLIA # [id number]/Rosanne Scanlon MD, Matzo Forming Machine Operator.) 01/14/2025 4:02 PM EST [facility] Console Pap Interpretation Reported 01/14/2025 4:02 PM EST [facility]) [facility] Brushing/Spatula Cervix uteri structure / Unknown 01/12/2025 12:00 PM EST 01/13/2025 7:54 AM EST us Bo Torres MD LAB CYTOLOGY ORDERABLES Final Result [facility] [address] [place] [address], from Last 3 Months Insurance [employer] - [place] MEDICARE ADVANTAGE Care Teams Geophysical Data Technician Relationship Specialty Start Date End Date Shannan Hodges MD [address] [place] [address] PCP - General Internal Medicine 01/13/25
--- OUTSIDE RECORDS SUMMARY | 2025-02-23 08:08 | XMS_ITS | Patient Health Record ---
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[employer] [place] Caffeine: 1-2 cups per day Section Notes: Nonsmoker; 1-2 glasses of wi ne QD Nonsmoker; 1-2 glasses of wi ne QD Nonsmoker; 1-2 glasses of wi ne QD Nonsmoker; 1-2 glasses of wi ne QD Problems Problem Type SNOMED Code ICD Code Onset Dates Problem Status W/U Status Risk Notes Problem Gastro-esophagea l reflux disease without esophagitis (309814930) Gastro-esophage al reflux disease without esophagitis (K21.9) Active confirmed Problem Screening for malignant neoplasm of colon (782210448) Encounter for screening for malignant neoplasm of colon (Z12.11) Active confirmed Plan Of Treatment Future Test Test Name Order Date COLONOSCOPY 02/05/2018 Insurance Providers Payer Name Payer Address Payer Phone Subscriber Number Group Number Insured Name Patient Relationship to Insured Coverage Start Date Coverage End Date MEDICARE OF [place] [address] [place] [address] [phone] [id number] BEENA CUNNINGHAM Self - patient is the insured MEDEX ATTN CLAIMS [address] [place] [address] [phone] [id number] BEENA CUNNINGHAM Self - patient is the insured Medical (General) History Medical History History ICD Code GERD-EGD as below Colonoscopy and EGD 06-09-2008 -diverticulosis and internal hemoirrhoids, and small HH, respectively--no esophagitis nor Casanova's hyperlipidemia hypertension Denies VT,DM,CVA,Lung disease,renal dise ase Arthritis-Knees
--- OUTSIDE RECORDS SUMMARY | 2025-02-23 08:08 | XMS_ITS | Encounter Summary ---
Author Organization [facility] Address [address] [place] [address] Care Team Providers Care Sales Representative [employer] Name Role Phone Shannan Hodges MD Primary Care Provider [phone] Encounter Details Date Type Department Care Team (Latest Contact Info) Description 01/13/2025 Lab Requisition [facility] - Main Lab [address] [place] [address] Bo Torres MD [address] [address] Encounter for gynecological examination (general) [...] lesion or malignancy 01/14/2025 4:[address] [facility] at 1602 EST General Categorization Negative 01/14/2025 4:02 PM [facility] Specimen Adequacy Satisfactory for evaluation, endocervical/spaulding sformation zone component absent 01/14/2025 4:[address] [facility] Pap Methodology Liquid Based Pap Test 01/14/2025 4:[address] [facility] Disclaimer The Pap test is a screening test which carries an inherent false negative rate. These test results should be correlated with the patient's clinical findings and history. This Pap test was processed using an automated screening system. Technical cytopathology services provided by [facility], at [address] [place] [address] (CLIA # [id number]/Rosanne Scanlon MD, Digester.) 01/14/2025 4:02 PM EST [facility]) [facility] Console Pap Interpretation Reported 01/14/2025 4:02 PM [facility] Brushing/Spatula Cervix uteri structure / Unknown 01/12/2025 12:00 PM EST 01/13/2025 7:54 AM EST us Bo Torres MD LAB CYTOLOGY ORDERABLES Final Result [facility]) [facility] [address] [place] [address], documented in this encounter Visit Diagnoses Diagnosis Encounter for gynecological examination (general) (routine) without abnormal findings documented in this encounter Care Teams Sales Representative [employer] Relationship Specialty Start Date End Date Shannan Hodges MD [address] [place] [address] PCP - General Internal Medicine 01/13/25 documented as of this encounter
== END 2025-02-23 08:39 | disposition home or self-care (01) ==
LOC: HO.HGS 08:03
PROVIDERS: PCP Physician Assistant; Visit Provider Surgery
DX: R92.8 Other abnormal and inconclusive findings on diagnostic imaging of breast (principal); Z80.3 Family history of malignant neoplasm of breast; Z80.41 Family history of malignant neoplasm of ovary
CPT/HCPCS: 99204

== ENCOUNTER 2025-02-23 08:50 | Outpatient (REF) | payer MEDICARE, SELFPAY ==
--- NOTE | ~2025-02-23 | MM_ITS ---
EXAMINATION(s)/PROCEDURE(s): 1. STEREOTACTIC TOMOSYNTHESIS-GUIDED VACUUM-ASSISTED BREAST BIOPSY, LEFT 2. SPECIMEN RADIOGRAPH, LEFT 3. POST PROCEDURE DIGITAL MAMMOGRAM with TOMOSYNTHESIS, LEFT CLINICAL INFORMATION: Patient is status post left breast diagnostic mammogram/ultrasound workup on February 06, 2025 that recommended stereotactic needle core biopsy of focal asymmetry in the upper outer quadrant. COMPARISON: Left diagnostic mammogram/ultrasound workup on February 06, 2025. Screening mammogram on January 28, 2025. TECHNIQUE/PROCEDURE: Informed consent was obtained from the patient after discussion of the benefits, risks, and alternatives to biopsy today. Patient appeared to understand. Gave opportunity for questions. Patient signed consent form. BIOPSY TABLE: [employer] Affirm Prone Biopsy System. LESION: Focal asymmetry in the upper outer quadrant posterior depth at 15 cm from the nipple. LOCAL ANESTHESIA: 19 cc of lidocaine 1% buffered with Sodium Bicarbonate 8.4% (9ml:1ml ratio). DERMATOTOMY: Two skin chepe dermatotomy performed. NEEDLE: Eviva 9-gauge vacuum assisted core biopsy device. APPROACH: Lateral. TARGETING: Digital breast tomosynthesis used for targeting. CORES: 7. CLIP: [employer] for Eviva Top Hat shape titanium ([id number]) SPECIMEN RADIOGRAPH: Specimen radiograph is taken in separate room using digital mammography. Denser tissue seen in some of the samples. The needle was then removed and adequate hemostasis was achieved. Estimated blood loss: Minimal POST PROCEDURE UNILATERAL DIGITAL MAMMOGRAM: The post biopsy mammogram is performed in separate room using separate digital mammography equipment from the biopsy procedure. Three views are obtained. . The top hat clip marker is in position. No gross hematoma. The patient tolerated the procedure well. No immediate complications. Home instructions reviewed with the patient. Final pathology results are pending. MM/MM stereotactic biopsy LT IMPRESSION: 1. Digital tomosynthesis-guided core biopsy left breast focal asymmetry with top hat clip placement. 2. Specimen radiograph taken and post procedure mammogram. There is satisfactory positioning of the biopsy clip. 3. Final pathology results pending. An addendum report will be issued. ASSESSMENT: BI-RADS: Post Procedure Mammograms for Marker Placement RECOMMENDATION: Awaiting Pathology Results Electronically signed by: Rachana Ellis MD 02/23/2025 11:25 AM [facility]
[2025-02-23] MEDS: Lidocaine HCl 1 % 20 ML VIAL SUBCUT (10:46)
== END 2025-02-23 08:51 | disposition home or self-care (01) ==
LOC: HO.MAMMO 08:50
PROVIDERS: PCP Physician Assistant Medical; Visit Provider Surgery
DX: R92.8 Other abnormal and inconclusive findings on diagnostic imaging of breast (principal); N64.89 Other specified disorders of breast; Z80.3 Family history of malignant neoplasm of breast; Z80.41 Family history of malignant neoplasm of ovary
CPT/HCPCS: 19081; 88305; 88342; 88360; A4648; J2003

== ENCOUNTER → 2025-02-23 09:00 | Outpatient (BNV) | payer MEDICARE, SELFPAY | PROVIDERS: PCP Physician Assistant Medical; Visit Provider Radiology Body Imaging | DX: R92.8 Other abnormal and inconclusive findings on diagnostic imaging of breast (principal) | CPT/HCPCS: 19081; 77065 ==

== ENCOUNTER 2025-03-02 08:10 | Outpatient (AMB) | payer MEDICARE, SELFPAY ==
--- OUTSIDE RECORDS SUMMARY | 2025-03-02 08:12 | XMS_ITS | Patient Health Record ---
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 Caffeine: 1-2 cups per day Section Notes: Nonsmoker; 1-2 glasses of wi ne QD Nonsmoker; 1-2 glasses of wi ne QD Nonsmoker; 1-2 glasses of wi ne QD Nonsmoker; 1-2 glasses of wi ne QD Problems Problem Type SNOMED Code ICD Code Onset Dates Problem Status W/U Status Risk Notes Problem Gastro-esophagea l reflux disease without esophagitis (268883695) Gastro-esophage al reflux disease without esophagitis (K21.9) Active confirmed Problem Screening for malignant neoplasm of colon (039811499) Encounter for screening for malignant neoplasm of colon (Z12.11) Active confirmed Plan Of Treatment Future Test Test Name Order Date COLONOSCOPY 02/05/2018 Insurance Providers Payer Name Payer Address Payer Phone Subscriber Number Group Number Insured Name Patient Relationship to Insured Coverage Start Date Coverage End Date MEDICARE OF [place] [address] [place] [address] [phone] [id number] BEENA CUNNINGHAM Self - patient is the insured MEDEX ATTN CLAIMS [address] [place] [address] [id number] BEENA CUNNINGHAM Self - patient is the insured Medical (General) History Medical History History ICD Code GERD-EGD as below Colonoscopy and EGD 06-09-2008 -diverticulosis and internal hemoirrhoids, and small HH, respectively--no esophagitis nor Casanova's hyperlipidemia hypertension Denies [place],DM,CVA,Lung disease,renal dise ase Arthritis-Knees
--- OUTSIDE RECORDS SUMMARY | 2025-03-02 08:12 | XMS_ITS | Encounter Summary ---
Author Organization [facility] Address [address] [place] [address] Care Team Providers Care Refresh Technician Name Role Phone Shannan Hodges MD Primary Care Provider [phone] Encounter Details Date Type Department Care Team (Latest Contact Info) Description 01/13/2025 Lab Requisition [facility] - Main Lab [address] [place] [address] Bo Torres MD [address] [address] Encounter for gynecological examination (general) [...] lesion or malignancy 01/14/2025 4:02 PM EST [facility] at 1602 EST General Categorization Negative 01/14/2025 4:02 PM [facility] Specimen Adequacy Satisfactory for evaluation, endocervical/spaulding sformation zone component absent 01/14/2025 4:02 PM EST [facility] Pap Methodology Liquid Based Pap Test 01/14/2025 4:02 PM EST [facility] Disclaimer The Pap test is a screening test which carries an inherent false negative rate. These test results should be correlated with the patient's clinical findings and history. This Pap test was processed using an automated screening system. Technical cytopathology services provided by [facility], at [address] [place] [address] (CLIA # [id number]/Rosanne Scanlon MD, Drama Director.) 01/14/2025 4:02 PM EST [facility] ([facility]) [facility] Console Pap Interpretation Reported 01/14/2025 4:02 PM [facility] Brushing/Spatula Cervix uteri structure / Unknown 01/12/2025 12:00 PM EST 01/13/2025 7:54 AM EST us Bo Torres MD LAB CYTOLOGY ORDERABLES Final Result [facility]) [facility] [address] [place] [address], documented in this encounter Visit Diagnoses Diagnosis Encounter for gynecological examination (general) (routine) without abnormal findings documented in this encounter Care Teams Refresh Technician Relationship Specialty Start Date End Date Shannan Hodges MD [address] [place] [address] PCP - General Internal Medicine 01/13/25 documented as of this encounter
--- OUTSIDE RECORDS SUMMARY | 2025-03-02 08:12 | XMS_ITS | Clinical Summary ---
Author Organization [address] [facility] Address [address] [place] [address] Phone Care Team Providers Care Operations Specialist Name Role Phone Shannan Hodges MD Primary Care Provider [phone] Encounters Date Type Department Care Team Description 01/13/2025 Lab Requisition [facility] - Main Lab [address] [place] [address] Bo Torres MD Encounter for [...] system. Technical cytopathology services provided by [facility], at [address] [place] [address], [place] [address] (CLIA # [id number]/Rosanne Scanlon MD, Project Reservoir Engineer.) 01/14/2025 4:02 PM EST [facility] Console Pap Interpretation Reported 01/14/2025 4:02 PM EST [facility]) [facility] Brushing/Spatula Cervix uteri structure / Unknown 01/12/2025 12:00 PM EST 01/13/2025 7:54 AM EST us Bo Torres MD LAB CYTOLOGY ORDERABLES Final Result [facility] [address] [place] [address], from Last 3 Months Insurance [employer] - [place] MEDICARE ADVANTAGE Care Teams Operations Specialist Relationship Specialty Start Date End Date Shannan Hodges MD [address] [place] [address] PCP - General Internal Medicine 01/13/25
--- NOTE | 2025-03-02 08:13 | A.OFFVIS_ITS ---
Vital Signs 03/02/25 08:14 Height 5 ft 4 in Weight 205 lb BMI 35.2 BP 152/70 H Blood Pressure Location Rt brachial Position Sitting Pulse 64 Intake Visit Reasons: 1wk L brst stero BX upper out quad distortation Intake Note: Patient here today s/p left breast st bx, for distortion upper outer quadrant. Patient c/o: no concerns. Reports bx site healing well. Denies tenderness, oozing, inflammation. Coremaking Machine Setter Required: No Accompanied by: Self / Same As Patient Allergies No Known Allergies Allergy (Unknown, Verified 03/02/25 08:20) HPI Comments Details: 74-year-old female patient returning following a recent left breast stereotactic guided core biopsy performed on 02/23/2025. Pathology revealed invasive lobular carcinoma, grade 2 with lobular carcinoma in-situ. Immunostaining is pending. The patient tolerated the procedure well and denies any ongoing breast symptoms at this time. Screening mammogram of 01/28/2025 revealed of area of focal asymmetry in the upper outer quadrant of the left breast and subsequent diagnostic mammogram and ultrasound confirmed the focal asymmetry in the upper outer quadrant which was felt to be suspicious for malignancy. She has a prior history of a left breast biopsy many years ago which was benign. She is with 2 adult children and 1 previous miscarriage. Menarche was at 15 in her 1st child was born when she was 18. Family history is significant for her mother having breast cancer in her late 70s. Her sister had ovarian cancer as well as an aneurysm. Her sisters alive and well. We discussed genetic testing again today and she will think about this. [facility] Medical History CKD (chronic kidney disease) stage 3, GFR 30-59 ml/min Diarrhea Abdominal pain Dark stools Obesity (BMI 30-39.9) Hyperlipidemia Hypertension New onset atrial fibrillation Acid reflux High cholesterol High blood pressure Surgical History Status post total right knee replacement History of esophagogastroduodenoscopy (EGD) H/O colonoscopy (~04/05/18) Hx of left knee surgery Family History Mother No problems noted. Father No problems noted. 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 Cognitive needs: Yes (walker) Hearing needs: No Vision needs: Yes (rx glasses) Review of Systems Const All systems reviewed & are unremarkable except as noted in HPI and below Physical Exam Vital Signs: Last Vital Signs Pulse 64 03/02/25 08:14 BP 152/70 H 03/02/25 08:14 BMI result Body Mass Index 35.2 Const General: cooperative and no acute distress Nutritional Appearance: well nourished Orientation/consciousness: patient oriented x3 Limitations: no limitations HEENT Head: Yes normocephalic and Yes atraumatic Ears: hearing grossly normal bilaterally Chest Other: Left breast: No skin change, no nipple retraction, no nipple discharge, no palpable mass, no enlarged lymph nodes. Right breast: No skin change, no nipple retraction, no nipple discharge, no palpable mass, no enlarged lymph nodes Resp Effort & Inspection: normal respiratory effort, no audible wheezes, no cough and no respiratory distress Cardio Jugular venous distension: no JVD GI Inspection: Yes normal to inspection Skin Other: Warm, dry, no rash Neuro Other: Mobility Assessment: 1. 3 meter assessment time (seconds): 5 2. Gait observations: Normal balance and gait General: patient oriented x3 Extrem General: Yes no clubbing, cyanosis or edema Assessment & Plan Assessment & Plan (1) Invasive lobular carcinoma of left breast in female: Code(s): C50.912 - Malignant neoplasm of unspecified site of left female breast Category: Medical (2) Family history of breast cancer: Code(s): Z80.3 - Family history of malignant neoplasm of breast Category: Medical Plan 74-year-old female patient recently diagnosed with a left breast invasive lobular carcinoma with LCIS, grade 2 (immunostains pending). I reviewed the pathology in detail with the patient and discussed next steps. I recommended proceeding with breast MRI given the pathology results. If there was an extensive area of abnormality, arrangements will be made for oncology consultation. She expressed understanding and agrees with the plan. I will call her with the results of the MRI once available. She is welcome to call sooner for any concerns or questions. Orders: Orders MR breast BI wo/w con Today C50.912 - Malignant neoplasm of unspecified site of left female breast Coding Level of Care Code Est Pt Level 3 (14764) Diagnoses Invasive lobular carcinoma of left breast in female C50.912 Family history of breast cancer Z80.3
[2025-03-02 08:14] VITALS: BP 152/70; PULSE 64; BMI 35.2
== END 2025-03-02 08:30 | disposition home or self-care (01) ==
LOC: HO.HGS 08:10
PROVIDERS: PCP Physician Assistant Medical; Visit Provider Surgery
DX: C50.912 Malignant neoplasm of unspecified site of left female breast (principal); Z80.3 Family history of malignant neoplasm of breast
CPT/HCPCS: 99213

== ENCOUNTER → 2025-03-02 08:10 | Outpatient (BNVA) | payer MEDICARE, SELFPAY | PROVIDERS: PCP Physician Assistant Medical; Visit Provider Surgery | DX: C50.912 Malignant neoplasm of unspecified site of left female breast (principal); Z80.3 Family history of malignant neoplasm of breast | CPT/HCPCS: 99212 ==